=== PATIENT | female | born 1995 | race Caucasian/White ===

== ENCOUNTER 2018-07-26 17:08 | Emergency (ER) | payer OTHER, MEDICAID, SELFPAY ==
[2018-07-26 17:13] VITALS: BP 122/82; PULSE 80; RESP 20; TEMP 36.8; O2SAT 97
--- NOTE | 2018-07-26 17:16 | DI.RAD.S_ITS ---
PROCEDURE: XR CHEST 2V INDICATIONS: productive cough/soa TECHNIQUE: 2 views of the chest were acquired. COMPARISON: None. FINDINGS: Surgical changes and devices: None. Lungs and pleura: No pleural effusions or pneumothorax. Lungs are clear. Mediastinum: Mediastinal contours are normal. Heart size is normal. Bones and chest wall: No suspicious bony abnormalities. Soft tissues appear unremarkable. IMPRESSION: No acute cardiopulmonary findings. Dictated by: Daly Diamond M.D. on 07/26/2018 at 17:39 Approved by: Daly Diamond M.D. on 07/26/2018 at 17:39
[2018-07-26 17:39] LABS: Influenza A and B by PCR Rapid Negative (Negative)
--- NOTE | 2018-07-26 19:33 | PC.NURSE ---
Pt swabbed for FLU test per protocol. provider aware.
--- NOTE | 2018-07-26 20:22 | ED.URI ---
HPI - URI/Sore Throat <THAIS Chester - Last Filed: 07/26/18 22:14> General Chief Complaint: Upper Respiratory Symptoms Stated Complaint: DIFFICULTY BREATHING, COUGH Time Seen by Provider: 07/26/18 19:30 Source: patient Mode of arrival: ambulatory Limitations: no limitations History of Present Illness HPI Narrative: 22-year-old female with history of asthma and is a nonsmoker here for complaint of having a cough nasal congestion and generalized malaise over the past 4-5 days. She has had nasal congestion. She is tolerating p.o. fluids. She denies having a fever. She states she has had productive cough over the same timeframe. She has been using her albuterol inhaler approximately about once daily. She denies any other concerns or complaints this timeframe. She is ambulatory into the emergency room. She is able speak full sentences. Related Data Previous Rx's Medication Instructions Recorded drospirenone-ethinyl estradiol 1 tab PO Q DAY #1 pac 09/14/17 [Ocella] Allergies Allergy/AdvReac Type Severity Reaction Status Date / Time amoxicillin [AMOXICILLIN] Allergy Unknown diarrhea Unverified 10/26/17 12:40 Review of Systems <THAIS Chester - Last Filed: 07/26/18 22:14> Constitutional Denies chills, Denies fever(s), Denies lethargy, Reports malaise and Denies weakness Eyes Denies change in vision, Denies eye discharge, Denies irritation and Denies loss of vision ENT Ears, Nose, Mouth, and Throat: Reports nasal congestion and Denies throat swelling Cardiovascular Denies chest pain, Denies irregular heart rhythm, Denies lightheadedness, Denies palpitations and Denies orthopnea Respiratory Reports cough and Denies wheezing Gastrointestinal Gastrointestinal: Denies abdominal pain, Denies change in bowel habits, Denies diarrhea, Denies nausea and Denies vomiting Genitourinary Denies hematuria, Denies flank pain, Denies urinary incontinence and Denies urinary urgency Musculoskeletal Denies back pain, Denies muscle weakness, Denies numbness and Denies tingling Integumentary/Breasts Denies pruritus, Denies erythema, Denies rash and Denies wounds Neurologic Denies confusion, Denies loss of vision, Denies numbness, Denies tingling and Denies weakness Psychiatric Denies anxiety, Denies confusion, Denies depression, Denies homicidal ideation and Denies suicidal ideation Endocrine Denies palpitations Hematologic/Lymphatic Denies easy bruising Allergic/Immunologic Denies urticaria, Denies throat swelling and Denies wheezing Exam <THAIS Chester - Last Filed: 07/26/18 22:14> Initial Vital Signs Initial Vital Signs: Vital Signs Temperature 98.2 F 07/26/18 17:13 Pulse Rate 80 07/26/18 17:13 Respiratory Rate 20 07/26/18 17:13 Blood Pressure 122/82 07/26/18 17:13 Pulse Oximetry 97 07/26/18 17:13 Const General: cooperative and well developed Nutritional Appearance: well nourished Orientation: alert, awake, oriented x3 and not confused HENGA Mouth: oral mucosae normal, oropharynx normal and moist mucous membranes Eyes Conjunctivae: conjunctivae normal Sclera: sclerae normal Pupils: PERRL EOM: EOM intact bilaterally Resp Effort & Inspection: normal respiratory effort, able to speak in complete sentences, no respiratory distress and no use of accessory muscles Auscultation: clear to auscultation bilaterally, no rales, no rhonchi and no wheezes Cardio Rate: regular rate Rhythm: regular rhythm Heart Sounds: no click, no gallops, no murmurs and no rubs Pulses: normal peripheral pulses Skin General: no rashes or lesions noted, No jaundice and No petechiae Neuro General: alert, oriented x3, gait normal and no focal motor deficits Speech: speech normal <Nell Pierce MD - Last Filed: 07/26/18 23:16> Initial Vital Signs Initial Vital Signs: Vital Signs Temperature 98.2 F 07/26/18 17:13 Pulse Rate 80 07/26/18 17:13 Respiratory Rate 20 07/26/18 17:13 Blood Pressure 122/82 07/26/18 17:13 Pulse Oximetry 97 07/26/18 17:13 Course <THAIS Chester - Last Filed: 07/26/18 22:14> Orders Ordered: ED Orders 07/26/18 17:16 Chest [XR chest 2V] Stat 07/26/18 17:17 Influenza A and B by PCR Rapid Stat Vital Signs - 8 hr 07/26/18 17:13 07/26/18 20:49 Temperature 98.2 F Pulse Rate 80 68 Respiratory Rate 20 15 Blood Pressure 122/82 Blood Pressure [Right Arm] 121/70 Pulse Oximetry 97 98 <Nell Pierce MD - Last Filed: 07/26/18 23:16> Orders Ordered: ED Orders 07/26/18 17:16 Chest [XR chest 2V] Stat 07/26/18 17:17 Influenza A and B by PCR Rapid Stat Vital Signs - 8 hr 07/26/18 17:13 07/26/18 20:49 Temperature 98.2 F Pulse Rate 80 68 Respiratory Rate 20 15 Blood Pressure 122/82 Blood Pressure [Right Arm] 121/70 Pulse Oximetry 97 98 MDM - URI/Sore Throat <THAIS Chester - Last Filed: 07/26/18 22:14> Lab Data Lab Results 07/26/18 Range/Units 17:17 Influenza A & B (PCR) Negative (Negative) Imaging Data Chest x-ray: Radiologist's impression: [address] [address] XRay Report Signed Patient: Lea Galarza MR#: [id number] : 1995 Acct:[id number] Age/Sex: 22 / F Date of Service: 07/26/18 Loc: ED Accession Number: [id number] Procedure: XR chest 2V Ordering Provider: Caty Angulo D.O. PROCEDURE: XR CHEST 2V INDICATIONS: productive cough/soa TECHNIQUE: 2 views of the chest were acquired. COMPARISON: None. FINDINGS: Surgical changes and devices: None. Lungs and pleura: No pleural effusions or pneumothorax. Lungs are clear. Mediastinum: Mediastinal contours are normal. Heart size is normal. Bones and chest wall: No suspicious bony abnormalities. Soft tissues appear unremarkable. IMPRESSION: No acute cardiopulmonary findings. Dictated by: Daly Diamond M.D. on 07/26/2018 at 17:39 Approved by: Daly Diamond M.D. on 07/26/2018 at 17:39 [facility] Narrative Medical decision making narrative: Chest x-ray was obtained was negative for any acute findings. Influenza swab was obtained and was negative. Signs and symptoms presents as a viral upper respiratory infection. Patient was in no acute distress. Vital signs were normal. Lung sounds were clear. Plenty of fluids and rest. [id number] Tylenol or Motrin as needed for any discomfort. Saline irrigation and hot showers to help with nasal congestion. For any worsening symptoms return to the emergency room. <Nell Pierce MD - Last Filed: 07/26/18 23:16> Lab Data Lab Results 07/26/18 Range/Units 17:17 Influenza A & B (PCR) Negative (Negative) Discharge Plan Departure Patient Disposition: Home Clinical Impression: Upper respiratory infection Discharge Date/Time: 07/26/18 20:55 Interventions: ED Discharge Assessment Last Done: 07/26/18 20:54 Instructions: DI for Viral Upper Respiratory Infection -- Adult Activity Restrictions/Additional Instructions: Chest x-ray was obtained was negative for any acute findings. Influenza swab was obtained and was negative. Signs and symptoms presents as a viral upper respiratory infection. Plenty of fluids and rest. [id number] Tylenol or Motrin as needed for any discomfort. Saline irrigation and hot showers to help with nasal congestion. For any worsening symptoms return to the emergency room. Prescriptions: No Action drospirenone-ethinyl estradiol [Ocella] 0.03 MG/3 MG tablet 1 tab PO Q DAY Qty: 1 RF: 11 Referrals: Sumaya Witt MD [Primary Care Provider] -
--- NOTE | 2018-07-26 20:33 | ED_ITS ---
HPI - URI/Sore Throat <THAIS Chester - Last Filed: 07/26/18 22:14> General Chief Complaint: Upper Respiratory Symptoms Stated Complaint: DIFFICULTY BREATHING, COUGH Time Seen by Provider: 07/26/18 19:30 Source: patient Mode of arrival: ambulatory Limitations: no limitations History of Present Illness HPI Narrative: 22-year-old female with history of asthma and is a nonsmoker here for complaint of having a cough nasal congestion and generalized malaise over the past 4-5 days. She has had nasal congestion. She is tolerating p.o. fluids. She denies having a fever. She states she has had productive cough over the same timeframe. She has been using her albuterol inhaler approximately about once daily. She denies any other concerns or complaints this timeframe. She is ambulatory into the emergency room. She is able speak full sentences. Related Data Previous Rx's Medication Instructions Recorded drospirenone-ethinyl estradiol 1 tab PO Q DAY #1 pac 09/14/17 [Ocella] Allergies Allergy/AdvReac Type Severity Reaction Status Date / Time amoxicillin [AMOXICILLIN] Allergy Unknown diarrhea Unverified 10/26/17 12:40 Review of Systems <THAIS Chester - Last Filed: 07/26/18 22:14> Constitutional Denies chills, Denies fever(s), Denies lethargy, Reports malaise and Denies weakness Eyes Denies change in vision, Denies eye discharge, Denies irritation and Denies loss of vision ENT Ears, Nose, Mouth, and Throat: Reports nasal congestion and Denies throat swelling Cardiovascular Denies chest pain, Denies irregular heart rhythm, Denies lightheadedness, Denies palpitations and Denies orthopnea Respiratory Reports cough and Denies wheezing Gastrointestinal Gastrointestinal: Denies abdominal pain, Denies change in bowel habits, Denies diarrhea, Denies nausea and Denies vomiting Genitourinary Denies hematuria, Denies flank pain, Denies urinary incontinence and Denies urinary urgency Musculoskeletal Denies back pain, Denies muscle weakness, Denies numbness and Denies tingling Integumentary/Breasts Denies pruritus, Denies erythema, Denies rash and Denies wounds Neurologic Denies confusion, Denies loss of vision, Denies numbness, Denies tingling and Denies weakness Psychiatric Denies anxiety, Denies confusion, Denies depression, Denies homicidal ideation and Denies suicidal ideation Endocrine Denies palpitations Hematologic/Lymphatic Denies easy bruising Allergic/Immunologic Denies urticaria, Denies throat swelling and Denies wheezing Exam <THAIS Chester - Last Filed: 07/26/18 22:14> Initial Vital Signs Initial Vital Signs: Vital Signs Temperature 98.2 F 07/26/18 17:13 Pulse Rate 80 07/26/18 17:13 Respiratory Rate 20 07/26/18 17:13 Blood Pressure 122/82 07/26/18 17:13 Pulse Oximetry 97 07/26/18 17:13 Const General: cooperative and well developed Nutritional Appearance: well nourished Orientation: alert, awake, oriented x3 and not confused HENGA Mouth: oral mucosae normal, oropharynx normal and moist mucous membranes Eyes Conjunctivae: conjunctivae normal Sclera: sclerae normal Pupils: PERRL EOM: EOM intact bilaterally Resp Effort & Inspection: normal respiratory effort, able to speak in complete sentences, no respiratory distress and no use of accessory muscles Auscultation: clear to auscultation bilaterally, no rales, no rhonchi and no wheezes Cardio Rate: regular rate Rhythm: regular rhythm Heart Sounds: no click, no gallops, no murmurs and no rubs Pulses: normal peripheral pulses Skin General: no rashes or lesions noted, No jaundice and No petechiae Neuro General: alert, oriented x3, gait normal and no focal motor deficits Speech: speech normal <Nell Pierce MD - Last Filed: 07/26/18 23:16> Initial Vital Signs Initial Vital Signs: Vital Signs Temperature 98.2 F 07/26/18 17:13 Pulse Rate 80 07/26/18 17:13 Respiratory Rate 20 07/26/18 17:13 Blood Pressure 122/82 07/26/18 17:13 Pulse Oximetry 97 07/26/18 17:13 Course <THAIS Chester - Last Filed: 07/26/18 22:14> Orders Ordered: ED Orders 07/26/18 17:16 Chest [XR chest 2V] Stat 07/26/18 17:17 Influenza A and B by PCR Rapid Stat Vital Signs - 8 hr 07/26/18 17:13 07/26/18 20:49 Temperature 98.2 F Pulse Rate 80 68 Respiratory Rate 20 15 Blood Pressure 122/82 Blood Pressure [Right Arm] 121/70 Pulse Oximetry 97 98 <Nell Pierce MD - Last Filed: 07/26/18 23:16> Orders Ordered: ED Orders 07/26/18 17:16 Chest [XR chest 2V] Stat 07/26/18 17:17 Influenza A and B by PCR Rapid Stat Vital Signs - 8 hr 07/26/18 17:13 07/26/18 20:49 Temperature 98.2 F Pulse Rate 80 68 Respiratory Rate 20 15 Blood Pressure 122/82 Blood Pressure [Right Arm] 121/70 Pulse Oximetry 97 98 MDM - URI/Sore Throat <THAIS Chester - Last Filed: 07/26/18 22:14> Lab Data Lab Results 07/26/18 Range/Units 17:17 Influenza A & B (PCR) Negative (Negative) Imaging Data Chest x-ray: Radiologist's impression: [address] [address] XRay Report Signed Patient: Lea Galarza MR#: [id number] : 1995 Acct:[id number] Age/Sex: 22 / F Date of Service: 07/26/18 Loc: ED Accession Number: [id number] Procedure: XR chest 2V Ordering Provider: Caty Angulo D.O. PROCEDURE: XR CHEST 2V INDICATIONS: productive cough/soa TECHNIQUE: 2 views of the chest were acquired. COMPARISON: None. FINDINGS: Surgical changes and devices: None. Lungs and pleura: No pleural effusions or pneumothorax. Lungs are clear. Mediastinum: Mediastinal contours are normal. Heart size is normal. Bones and chest wall: No suspicious bony abnormalities. Soft tissues appear unremarkable. IMPRESSION: No acute cardiopulmonary findings. Dictated by: Daly Diamond M.D. on 07/26/2018 at 17:39 Approved by: Daly Diamond M.D. on 07/26/2018 at 17:39 [facility] Narrative Medical decision making narrative: Chest x-ray was obtained was negative for any acute findings. Influenza swab was obtained and was negative. Signs and symptoms presents as a viral upper respiratory infection. Patient was in no acute distress. Vital signs were normal. Lung sounds were clear. Plenty of fluids and rest. [id number]-[id number]-[id number] Tylenol or Motrin as needed for any discomfort. Saline irrigation and hot showers to help with nasal congestion. For any worsening symptoms return to the emergency room. <Nell Pierce MD - Last Filed: 07/26/18 23:16> Lab Data Lab Results 07/26/18 Range/Units 17:17 Influenza A & B (PCR) Negative (Negative) Discharge Plan Departure Patient Disposition: Home Clinical Impression: Upper respiratory infection Discharge Date/Time: 07/26/18 20:55 Interventions: ED Discharge Assessment Last Done: 07/26/18 20:54 Instructions: DI for Viral Upper Respiratory Infection -- Adult Activity Restrictions/Additional Instructions: Chest x-ray was obtained was negative for any acute findings. Influenza swab was obtained and was negative. Signs and symptoms presents as a viral upper respiratory infection. Plenty of fluids and rest. [id number] Tylenol or Motrin as needed for any discomfort. Saline irrigation and hot showers to help with nasal congestion. For any worsening symptoms return to the emergency room. Prescriptions: No Action drospirenone-ethinyl estradiol [Ocella] 0.03 MG/3 MG tablet 1 tab PO Q DAY Qty: 1 RF: 11 Referrals: Sumaya Witt MD [Primary Care Provider] -
[2018-07-26 20:49] VITALS: BP 121/70; PULSE 68; RESP 15; O2SAT 98
== END 2018-07-26 20:55 | disposition home or self-care (01) ==
PROVIDERS: Emergency Medicine; Emergency Provider Nurse Practitioner Family; PCP Obstetrics & Gynecology
DX: J06.9 Acute upper respiratory infection, unspecified (principal)
CPT/HCPCS: 71046; 87400; 99282; 99283

== ENCOUNTER 2019-08-15 14:03 | Emergency (ER) | payer OTHER, MEDICAID, SELFPAY ==
--- NOTE | 2019-08-15 14:50 | PC.NURSE ---
pt stopped me in triage. said she wanted to see if she can get insurance and went back to the registration desk.
--- NOTE | 2019-08-15 21:25 | ED.ABDPAIN ---
HPI - Abdominal Pain General Chief Complaint: Abdominal Pain Stated Complaint: persistant stomach pain 9 days History of Present Illness HPI narrative: The patient was not interviewed or evaluated or examined by myself. She left without being seen. Related Data Previous Rx's Medication Instructions Recorded drospirenone-ethinyl estradiol 1 tab PO Q DAY #1 pac 09/14/17 [Ocella] Allergies Allergy/AdvReac Type Severity Reaction Status Date / Time amoxicillin [AMOXICILLIN] Allergy Unknown diarrhea Unverified 10/26/17 12:40 MDM - Abdominal Pain MDM Narrative Medical decision making narrative: Patient left without being seen. She was not interviewed and examined or evaluated. Discharge Plan Departure Patient Disposition: Left Without Being Seen Clinical Impression: Patient left without being seen Discharge Date/Time: 08/15/19 16:36
== END 2019-08-15 16:36 | disposition left against medical advice (07) ==
PROVIDERS: Emergency Provider Emergency Medicine; PCP Obstetrics & Gynecology

== ENCOUNTER → 2020-03-19 16:08 | Outpatient (CLI) | payer OTHER, MEDICAID, SELFPAY | PROVIDERS: Visit Provider Physician Assistant | DX: R30.0 Dysuria (principal) | CPT/HCPCS: 87077; 87086; 87147; 87186 ==

== ENCOUNTER → 2020-06-03 10:52 | Outpatient (CLI) | payer OTHER, MEDICAID, SELFPAY ==
[2020-06-03 12:49] LABS: Hematocrit 44.7 % (36-46); Hemoglobin 14.8 g/dL (12.0-16.0); Mean Corpuscular HGB Conc 33.2 % (30-36); Mean Corpuscular Hemoglobin 29.3 PG (26-34); Mean Corpuscular Volume 88.1 fL (80-100); Platelet Count 307 X10^3/uL (150-400); Red Blood Cell Count 5.07 X10^6/uL (4.0-5.2); Red Cell Distribution Width 12.5 % (11.6-14.8); White Blood Cell Count 6.8 X10^3/uL (4.5-11.0)
[2020-06-03 12:57] LABS: Add Manual Diff / Slide Review YES
[2020-06-03 13:06] LABS: Alanine Aminotransferase 20 IU/L (<35); Albumin 4.6 g/dL (3.5-5.0); Albumin Globulin Ratio 1.6 (1.0-2.8); Alkaline Phosphatase 54 U/L (38-126); Aspartate Aminotransferase 26 IU/L (14-36); BUN Creatinine Ratio 25.7 (6-22); Bilirubin Total 1.1 mg/dL (0.2-1.3); Blood Urea Nitrogen 18 mg/dL (7-17); Calcium 9.4 mg/dL (8.4-10.2); Carbon Dioxide 28 mmol/L (22-32); Chloride 104 mmol/L (98-107); Estimated Glomerular Filt Rate > 60.0 mL/min (>60); Globulin 2.9 g/dL (1.7-4.1); Glucose 85 mg/dL (70-100); HEMOLYSIS < 15 (0-50); Neutrophils Absolute Manual 2992 /uL (3000-5900); Potassium 4.3 mmol/L (3.4-5.1); Sodium 138 mmol/L (137-145); Total Cells Counted 100; Total Protein 7.5 g/dL (6.3-8.2)
[2020-06-03 13:08] LABS: RBC Morphology Normal Morphology
== END ==
PROVIDERS: PCP Registered Nurse; Referring Provider Registered Nurse; Visit Provider Registered Nurse
DX: Z30.40 Encounter for surveillance of contraceptives, unspecified (principal)
CPT/HCPCS: 36415; 80053; 85025

== ENCOUNTER → 2021-05-23 10:16 | Outpatient (CLI) | payer OTHER, MEDICAID, SELFPAY ==
[2021-05-23 11:02] LABS: COVID19 -Nasal RAPID Negative (Negative)
== END ==
PROVIDERS: PCP Registered Nurse; Visit Provider Physician Assistant
DX: Z20.822 Contact with and (suspected) exposure to COVID-19 (principal)
CPT/HCPCS: 87635

== ENCOUNTER → 2021-05-23 11:17 | Outpatient (CLI) | payer OTHER, MEDICAID, SELFPAY ==
[2021-05-23 12:30] LABS: Add Manual Diff / Slide Review NO; Basophils Absolute Auto 0 /uL (0-100); Basophils Percent Auto 0.2 % (0-2); Eosinophils Absolute Auto 200 /uL (0-450); Eosinophils Percent Auto 1.2 % (2-4); Hematocrit 37.9 % (36-46); Hemoglobin 12.8 g/dL (12.0-16.0); Lymphocytes Absolute Auto 1100 /uL (1100-4500); Lymphocytes Percent Auto 8.8 % (25-40); Mean Corpuscular HGB Conc 33.7 % (30-36); Mean Corpuscular Hemoglobin 29.4 PG (26-34); Mean Corpuscular Volume 87.3 fL (80-100); Monocytes Absolute Auto 1200 /uL (0-900); Monocytes Percent Auto 9.5 % (3-14); Neutrophils Absolute Auto 10100 /uL (1500-7000); Neutrophils Percent Auto 80.3 % (50-75); Platelet Count 225 X10^3/uL (150-400); Red Blood Cell Count 4.35 X10^6/uL (4.0-5.2); Red Cell Distribution Width 12.9 % (11.6-14.8); White Blood Cell Count 12.6 X10^3/uL (4.5-11.0)
[2021-05-23 12:55] LABS: Alanine Aminotransferase 16 IU/L (<35); Albumin 4.3 g/dL (3.5-5.0); Albumin Globulin Ratio 1.5 (1.0-2.8); Alkaline Phosphatase 63 U/L (38-126); Aspartate Aminotransferase 21 IU/L (14-36); BUN Creatinine Ratio 23.2 (6-22); Bilirubin Total 0.9 mg/dL (0.2-1.3); Blood Urea Nitrogen 13 mg/dL (7-17); Calcium 9.2 mg/dL (8.4-10.2); Carbon Dioxide 26 mmol/L (22-32); Chloride 102 mmol/L (98-107); Estimated Glomerular Filt Rate > 60.0 mL/min (>60); Globulin 2.9 g/dL (1.7-4.1); Glucose 91 mg/dL (70-100); HEMOLYSIS < 15 (0-50); Lipase 31 U/L (23-300); Potassium 4.1 mmol/L (3.4-5.1); Sodium 138 mmol/L (137-145); Total Protein 7.2 g/dL (6.3-8.2)
[2021-05-23 13:05] LABS: C-Reactive Protein Quant 15.1 mg/dL (<1.0)
[2021-05-23 13:37] LABS: Erythrocyte Sedimentation Rate 17 MM/HR (0-20)
== END ==
PROVIDERS: PCP Registered Nurse; Referring Provider Physician Assistant; Visit Provider Physician Assistant
DX: K58.9 Irritable bowel syndrome, unspecified (principal); K92.1 Melena; Z20.822 Contact with and (suspected) exposure to COVID-19
CPT/HCPCS: 36415; 80053; 83690; 85025; 85651; 86140; 87635

== ENCOUNTER 2021-05-24 10:59 | Emergency (ER) | payer OTHER, MEDICAID, SELFPAY ==
[2021-05-24 11:56] VITALS: BP 134/70; PULSE 109; RESP 18; TEMP 38.2; O2SAT 97; BMI 29.3
[2021-05-24 13:01] LABS: Adenovirus Not Detected (Not Detect); B. parapertussis Not Detected (Not Detecte); Bordetella pertussis Not Detected (Not Detecte); Chlamydophila pneumoniae Not Detected (Not Detect); Coronavirus 229E Not Detected (Not Detect); Coronavirus HKU1 Not Detected (Not Detect); Coronavirus NL 63 Not Detected (Not Detect); Coronavirus OC43 Not Detected (Not Detect); Human Metapneumovirus Not Detected (Not Detect); Human Rhinovirus/Enterovirus Detected (Not Detect); Influenza A Not Detected (Not Detect); Influenza B Not Detected (Not Detect); Mycoplasma pneumoniae Not Detected (Not Detect); Parainfluenza Virus 1 Not Detected (Not Detect); Parainfluenza Virus 2 Not Detected (Not Detect); Parainfluenza Virus 3 Not Detected (Not Detect); Parainfluenza Virus 4 Not Detected (Not Detect); Respiratory Syncytial Virus Not Detected (Not Detect); SARS- CoV-2 Not Detected (Not Detecte)
--- NOTE | 2021-05-24 13:28 | DI.US.S_ITS ---
PROCEDURE: US ABDOMEN LIMITED INDICATIONS: RUQ PAIN TECHNIQUE: Real-time focused scanning was performed of the right upper quadrant, with image documentation. COMPARISON: None. FINDINGS: The liver is normal in size and demonstrates no focal hepatic lesions. No gallstones, gallbladder wall thickening, or pericholecystic fluid. No intra or extrahepatic biliary ductal dilatation. The visualized common bile duct measures up to 4 mm. The pancreas is not well visualized but appears grossly unremarkable. IMPRESSION: 1. No evidence of cholelithiasis or cholecystitis. 2. No biliary ductal dilatation. Dictated by: Kenan Monroe M.D. on 05/24/2021 at 14:31 Approved by: Kenan Monroe M.D. on 05/24/2021 at 14:32
[2021-05-24 13:29] LABS: RBC Urine 1-5/HPF (0-5/HPF); Squamous Epithelial Cell Urine 1-5 /HPF (0-5/HPF); WBC Urine 10-30/HPF (0-5/HPF)
--- NOTE | 2021-05-24 13:29 | ED_ITS ---
HPI - Abdominal Pain General Chief Complaint: Fever Stated Complaint: body/head aches, no appetite, bloated, dark urine Time Seen by Provider: 05/24/21 13:22 Source: patient Mode of arrival: Ambulatory Limitations: no limitations History of Present Illness HPI narrative: 25-year-old female history of asthma presenting with 5 days of body aches abdominal bloating. She is trying to stay hydrated every time she drinks she does however more more bloated. She denies any nausea or vomiting. She she has loss of appetite. No cough nasal congestion or shortness of breath. She denies any chest pain. She noted that her urine was a little bit dark well. She is currently febrile. Related Data Home Medications Medication Instructions Recorded Confirmed copper 380 square mm intrauterine INTRAUTERINE 06/03/20 06/03/20 device (ParaGard T 380A) Previous Rx's Medication Instructions Recorded albuterol sulfate 90 mcg/actuation 2 puff INHALATION Q4-6H PRN #18 g 12/26/20 aerosol inhaler budesonide-formoterol HFA 160 2 puff INHALATION BID #10.2 g 12/26/20 mcg-4.5 mcg/actuation aerosol inhaler (Symbicort) Allergies Allergy/AdvReac Type Severity Reaction Status Date / Time amoxicillin [AMOXICILLIN] Allergy Unknown diarrhea Verified 06/03/20 10:10 Review of Systems Review of Systems Narrative: GENERAL: Denies chills, fatigue, malaise, fever, sweats, travel HEENT: Denies sinus pain, ear pain, sore throat, difficulty swallowing, neck pain RESPIRATORY: Denies dyspnea, cough, wheezing, hemoptysis, sputum. CARDIOVASCULAR: Denies chest pain, palpitations, orthopnea, edema GASTROINTESTINAL: See HPI : Denies dysuria, frequency, incontinence, hematuria, urinary retention, flank pain. MUSCULOSKELETAL: Denies weakness, joint pain, or bony pain SKIN: No rash, no erythema, no pruritus NEUROLOGIC: Denies weakness, dizziness, headache, numbness, change in speech, confusion PSYCHIATRIC: No concerning psychosocial issues. 12 point review of systems is negative except for those stated above and HPI Patient History Medical History (Updated 05/24/21 @ 13:28 by Laxmi Velarde DO) Bloody stools UTI (urinary tract infection) Social History Smoking Status: Never smoker Smoking Status: Never smoker alcohol intake frequency: other Substance Use Type: marijuana Exam Initial Vital Signs Initial Vital Signs: Vital Signs Temperature 100.8 F H 05/24/21 11:56 Pulse Rate 109 H 05/24/21 11:56 Respiratory Rate 18 05/24/21 11:56 Blood Pressure 134/70 05/24/21 11:56 Pulse Oximetry 97 05/24/21 11:56 GENERAL: Alert well-appearing 25-year-old female and in no acute distress. HEENT: Head atraumatic,EOMI, pupils reactive, face symmetric, moist mucous membranes CARDIOVASCULAR: Regular rate and rhythm without murmurs, rubs or gallops. RESPIRATORY: Breath sounds equal bilaterally, no wheezes rales or rhonchi. ABDOMEN: Soft, mild right upper quadrant no guarding no rebound no other pain normal bowel sounds : No CVA tenderness EXTREMITIES: Normal range of motion, no clubbing or edema. Neurovascularly intact NEUROLOGICAL: Alert and oriented x4.Normal gait and speech. SKIN: Warm, dry, no laceration, no petechiae, no rashes or lesions. Course Orders Ordered: ED Orders 05/24/21 12:05 Urine Culture Stat Urine Microscopic Stat 05/24/21 12:06 Respiratory Panel (Film Array) Stat 05/24/21 13:28 US abdomen limited Stat 05/24/21 14:02 Complete Blood Count AUTO DIFF Stat Comprehensive Metabolic Panel Stat Lipase Stat Discontinued Medications Sodium Chloride (Normal Saline 0.9%) 1,000 mls @ 1,000 mls/hr IV CONT TAJ Last Admin: 05/24/21 14:03 Dose: 1,000 mls/hr Documented by: CARMELA Ketorolac Tromethamine (Ketorolac 30 Mg/Ml Vial) 30 mg IV NOW ONE Stop: 05/24/21 13:29 Last Admin: 05/24/21 14:03 Dose: 30 mg Documented by: CARMELA Vital Signs Vital signs: Vital Signs - 8 hr 05/24/21 11:56 05/24/21 13:46 05/24/21 14:00 Temperature 100.8 F H Pulse Rate 109 H 98 H 103 H Respiratory Rate 18 Blood Pressure 134/70 131/70 Pulse Oximetry 97 100 100 05/24/21 14:01 05/24/21 14:30 05/24/21 15:00 Temperature Pulse Rate 96 H 104 H 113 H Respiratory Rate Blood Pressure 118/57 L 125/62 139/63 Pulse Oximetry 100 100 97 MDM - Abdominal Pain Lab Data Result diagrams: 05/24/21 14:02 05/24/21 14:02 Labs: Lab Results 05/24/21 05/24/21 05/24/21 Range/Units 12:05 12:06 14:02 WBC 11.8 H (4.5-11.0) X10^3/uL RBC 4.27 (4.0-5.2) X10^6/uL Hgb 12.5 (12.0-16.0) g/dL Hct 37.1 (36-46) % MCV 86.9 (80-100) fL MCH 29.2 (26-34) PG MCHC 33.6 (30-36) % RDW 12.8 (11.6-14.8) % Plt Count 225 (150-400) X10^3/uL Neut % (Auto) 80.2 H (50-75) % Lymph % (Auto) 8.8 L (25-40) % [place] % (Auto) 10.6 (3-14) % Eos % (Auto) 0.2 L (2-4) % Baso % (Auto) 0.2 (0-2) % Neut # (Auto) 9500 H (6976-2756) /uL Lymph # (Auto) 1000 L (0359-9208) /uL [place] # (Auto) 1200 H (0-900) /uL Eos # (Auto) 0 (0-450) /uL Baso # (Auto) 0 (0-100) /uL Sodium (137-145) mmol/L Potassium (3.4-5.1) mmol/L Chloride (98-107) mmol/L Carbon Dioxide (22-32) mmol/L BUN (7-17) mg/dL Creatinine (0.52-1.04) mg/dL Estimated GFR (>60) mL/min BUN/Creatinine Ratio (6-22) Glucose (70-100) mg/dL Calcium (8.4-10.2) mg/dL Total Bilirubin (0.2-1.3) mg/dL AST (14-36) IU/L ALT (<35) IU/L Alkaline Phosphatase (38-126) U/L Total Protein (6.3-8.2) g/dL Albumin (3.5-5.0) g/dL Globulin (1.7-4.1) g/dL Albumin/Globulin Ratio (1.0-2.8) Lipase (23-300) U/L Urine RBC 1-5/hpf (0-5/HPF) Urine WBC 10-30/hpf H (0-5/HPF) Ur Squamous Epith Cells 1-5 /hpf (0-5/HPF) Urine Bacteria Many (>30) H (None) Ur Culture Indicated? Specimen cultured Chlamy pneumoniae PCR Not detected (Not Detect) Adenovirus (PCR) Not detected (Not Detect) B. pertussis DNA (PCR) Not detected (Not Detecte) B.parapertussis DNA PCR Not detected (Not Detecte) Coronavirus OC43 (PCR) Not detected (Not Detect) Coronavirus HKU1 (PCR) Not detected (Not Detect) Coronavirus 229E (PCR) Not detected (Not Detect) SARS-CoV-2 (PCR) Not detected (Not Detecte) Coronavirus NL63 (PCR) Not detected (Not Detect) Human Metapneumovir PCR Not detected (Not Detect) Influenza Type A (PCR) Not detected (Not Detect) Influenza Type B (PCR) Not detected (Not Detect) M. pneumoniae (PCR) Not detected (Not Detect) Parainfluenza 1 (PCR) Not detected (Not Detect) Parainfluenza 2 (PCR) Not detected (Not Detect) Parainfluenza 3 (PCR) Not detected (Not Detect) Parainfluenza 4 (PCR) Not detected (Not Detect) RSV (PCR) Not detected (Not Detect) Entero/Rhino (PCR) Detected H (Not Detect) 05/24/21 Range/Units 14:02 WBC (4.5-11.0) X10^3/uL RBC (4.0-5.2) X10^6/uL Hgb (12.0-16.0) g/dL Hct (36-46) % MCV (80-100) fL MCH (26-34) PG MCHC (30-36) % RDW (11.6-14.8) % Plt Count (150-400) X10^3/uL Neut % (Auto) (50-75) % Lymph % (Auto) (25-40) % [place] % (Auto) (3-14) % Eos % (Auto) (2-4) % Baso % (Auto) (0-2) % Neut # (Auto) (6841-0921) /uL Lymph # (Auto) (8569-6584) /uL [place] # (Auto) (0-900) /uL Eos # (Auto) (0-450) /uL Baso # (Auto) (0-100) /uL Sodium 135 L (137-145) mmol/L Potassium 4.2 (3.4-5.1) mmol/L Chloride 99 (98-107) mmol/L Carbon Dioxide 28 (22-32) mmol/L BUN 9 (7-17) mg/dL Creatinine 0.64 (0.52-1.04) mg/dL Estimated GFR > 60.0 (>60) mL/min BUN/Creatinine Ratio 14.1 (6-22) Glucose 102 H (70-100) mg/dL Calcium 9.0 (8.4-10.2) mg/dL Total Bilirubin 0.9 (0.2-1.3) mg/dL AST 22 (14-36) IU/L ALT 18 (<35) IU/L Alkaline Phosphatase 72 (38-126) U/L Total Protein 7.8 (6.3-8.2) g/dL Albumin 4.4 (3.5-5.0) g/dL Globulin 3.4 (1.7-4.1) g/dL Albumin/Globulin Ratio 1.3 (1.0-2.8) Lipase 17 L (23-300) U/L Urine RBC (0-5/HPF) Urine WBC (0-5/HPF) Ur Squamous Epith Cells (0-5/HPF) Urine Bacteria (None) Ur Culture Indicated? Chlamy pneumoniae PCR (Not Detect) Adenovirus (PCR) (Not Detect) B. pertussis DNA (PCR) (Not Detecte) B.parapertussis DNA PCR (Not Detecte) Coronavirus OC43 (PCR) (Not Detect) Coronavirus HKU1 (PCR) (Not Detect) Coronavirus 229E (PCR) (Not Detect) SARS-CoV-2 (PCR) (Not Detecte) Coronavirus NL63 (PCR) (Not Detect) Human Metapneumovir PCR (Not Detect) Influenza Type A (PCR) (Not Detect) Influenza Type B (PCR) (Not Detect) M. pneumoniae (PCR) (Not Detect) Parainfluenza 1 (PCR) (Not Detect) Parainfluenza 2 (PCR) (Not Detect) Parainfluenza 3 (PCR) (Not Detect) Parainfluenza 4 (PCR) (Not Detect) RSV (PCR) (Not Detect) Entero/Rhino (PCR) (Not Detect) Point of care testing: Point of Care Testing Test Results Negative Urine Dip Bedside Urine Glucose Negative Bedside Urine Bilirubin - Negative Bedside Urine Ketone - Negative Urine Specific [place] 1.010 Bedside Urine Occult Blood +/- Bedside Urine pH 8.0 Bedside Urine Protein + 30 Bedside Urine Urobilinogen 2+ 4mg Bedside Urine Nitrite - Negative Bedside Urine Leukocytes +/- 15 Esterase Imaging Data US - abdomen: Radiologist's Impression: PROCEDURE: US ABDOMEN LIMITED ? INDICATIONS:? RUQ PAIN ? TECHNIQUE:? Real-time focused scanning was performed of the right upper quadrant, with image documentation.? ? COMPARISON:? None. ? FINDINGS:? ? The liver is normal in size and demonstrates no focal hepatic lesions. ? No gallstones, gallbladder wall thickening, or pericholecystic fluid. ? No intra or extrahepatic biliary ductal dilatation.? The visualized common bile duct measures up to 4 mm. ? The pancreas is not well visualized but appears grossly unremarkable.? ? IMPRESSION:? ? 1. No evidence of cholelithiasis or cholecystitis. ? 2. No biliary ductal dilatation.? ? ? Dictated by: Kenan Monroe M.D. on 05/24/2021 at 14:31 ? ? [facility] Narrative Medical decision making narrative: The patient is positive for rhino virus but not having upper respiratory like symptoms. She is having some mild abdominal discomfort urine is positive for urobilinogen. With mild right upper quadrant pain this finding in the urine blood work is done. Blood work is overall reassuring ultrasound is also negative. Patient is not having UTI symptoms. At this time viral syndrome on supportive care only. Discharge Plan Departure Patient Disposition: Home Clinical Impression: Upper respiratory infection Activity Restrictions/Additional Instructions: *You have been diagnosed with upper respiratory infection *What to do: You are positive for rhino virus. It is typically an upper respiratory infection. Blood work and abdominal workup is negative. Recommend increasing fluids. Body aches are likely from fever so please treat fever Tylenol or Motrin as directed *Continue to take medications as directed Motrin 800 mg every 8 hours if needed for [id number]-bc-vmbtiytg pain Tylenol 650 mg every 4-6 hours if needed for nlcc-da-pzdbbxoo pain *Follow up with your primary care provider in 2-3 days *Return to ER if you should have pain fever shortness of breath or any new, worsening or concerning symptoms Prescriptions: No Action budesonide-formoterol [Symbicort] 160-4.5 mcg/actuation HFA aerosol inhaler 2 puff inhalation BID Qty: 10.2 RF: 3 albuterol sulfate 90 mcg/actuation HFA aerosol inhaler 2 puff inhalation Q4-6H PRN (Reason: shortness of breath or wheezing) Qty: 18 RF: 3 ParaGard T 380A 380 square mm intrauterine device intrauterine RF: 0 Referrals: Calin Johnson ARNP [Primary Care Provider] -
[2021-05-24 13:30] LABS: Bacteria Urine Many (>30); Culture Indicated Urine Specimen Cultured
[2021-05-24 13:46] VITALS: BP 131/70; PULSE 98; O2SAT 100
[2021-05-24 14:00] VITALS: PULSE 103; O2SAT 100
[2021-05-24 14:01] VITALS: BP 118/57; PULSE 96; O2SAT 100
[2021-05-24] MEDS: SODIUM CHLORIDE 0.9% 1,000 ML 1000 ML IV (14:03)
[2021-05-24] MEDS: KETOROLAC 30 MG/ML VIAL IV (14:03)
[2021-05-24 14:10] LABS: Add Manual Diff / Slide Review NO; Basophils Absolute Auto 0 /uL (0-100); Basophils Percent Auto 0.2 % (0-2); Eosinophils Absolute Auto 0 /uL (0-450); Eosinophils Percent Auto 0.2 % (2-4); Hematocrit 37.1 % (36-46); Hemoglobin 12.5 g/dL (12.0-16.0); Lymphocytes Absolute Auto 1000 /uL (1100-4500); Lymphocytes Percent Auto 8.8 % (25-40); Mean Corpuscular HGB Conc 33.6 % (30-36); Mean Corpuscular Hemoglobin 29.2 PG (26-34); Mean Corpuscular Volume 86.9 fL (80-100); Monocytes Absolute Auto 1200 /uL (0-900); Monocytes Percent Auto 10.6 % (3-14); Neutrophils Absolute Auto 9500 /uL (1500-7000); Neutrophils Percent Auto 80.2 % (50-75); Platelet Count 225 X10^3/uL (150-400); Red Blood Cell Count 4.27 X10^6/uL (4.0-5.2); Red Cell Distribution Width 12.8 % (11.6-14.8); White Blood Cell Count 11.8 X10^3/uL (4.5-11.0)
[2021-05-24 14:19] LABS: Alanine Aminotransferase 18 IU/L (<35); Albumin 4.4 g/dL (3.5-5.0); Albumin Globulin Ratio 1.3 (1.0-2.8); Alkaline Phosphatase 72 U/L (38-126); Aspartate Aminotransferase 22 IU/L (14-36); BUN Creatinine Ratio 14.1 (6-22); Bilirubin Total 0.9 mg/dL (0.2-1.3); Blood Urea Nitrogen 9 mg/dL (7-17); Carbon Dioxide 28 mmol/L (22-32); Chloride 99 mmol/L (98-107); Estimated Glomerular Filt Rate > 60.0 mL/min (>60); Globulin 3.4 g/dL (1.7-4.1); Glucose 102 mg/dL (70-100); HEMOLYSIS < 15 (0-50); Lipase 17 U/L (23-300); Potassium 4.2 mmol/L (3.4-5.1); Sodium 135 mmol/L (137-145); Total Protein 7.8 g/dL (6.3-8.2)
[2021-05-24 14:30] VITALS: BP 125/62; PULSE 104; O2SAT 100
[2021-05-24 15:00] VITALS: BP 139/63; PULSE 113; O2SAT 97
== END 2021-05-24 15:12 | disposition home or self-care (01) ==
PROVIDERS: Emergency Provider Emergency Medicine; PCP Registered Nurse
DX: J06.9 Acute upper respiratory infection, unspecified (principal); B34.8 Other viral infections of unspecified site; R10.11 Right upper quadrant pain; Z20.822 Contact with and (suspected) exposure to COVID-19
CPT/HCPCS: 36415; 76705; 80053; 81003; 81015; 81025; 83690; 85025; 87077; 87086; 87186; 87633; 96361; 96374; 99284; J1885

== ENCOUNTER → 2021-08-25 11:35 | Outpatient (CLI) | payer OTHER, MEDICAID, SELFPAY | PROVIDERS: PCP Registered Nurse; Visit Provider Registered Nurse | DX: N39.0 Urinary tract infection, site not specified (principal); R35.0 Frequency of micturition | CPT/HCPCS: 81002; 87077; 87086; 87186 ==

== ENCOUNTER → 2021-08-31 13:19 | Outpatient (CLI) | payer OTHER, MEDICAID, SELFPAY | PROVIDERS: PCP Registered Nurse; Visit Provider Student in an Organized Health Care Education/Training Program | DX: N34.3 Urethral syndrome, unspecified (principal) | CPT/HCPCS: 87086 ==

== ENCOUNTER 2021-08-31 14:25 | Emergency (ER) | payer OTHER, MEDICAID, SELFPAY ==
--- NOTE | 2021-08-31 14:47 | DI.US.S_ITS ---
PROCEDURE: US ABDOMEN LIMITED INDICATIONS: RUQ PAIN TECHNIQUE: Real-time focused scanning was performed of the abdomen, with image documentation. COMPARISON: [facility], , US ABDOMEN LIMITED, 05/24/2021, 14:09. FINDINGS: The liver demonstrates no focal hepatic lesions. Gallbladder is normal in appearance without gallstones, wall thickening, or pericholecystic fluid. No intra or extrahepatic biliary ductal dilatation. The visualized common bile duct measures 2-3 mm. The visualized pancreas appears unremarkable sonographically. IMPRESSION: 1. No evidence of cholelithiasis or cholecystitis. Dictated by: Kenan Monroe M.D. on 08/31/2021 at 15:55 Approved by: Kenan Monroe M.D. on 08/31/2021 at 16:04
[2021-08-31 14:52] VITALS: BP 140/85; PULSE 87; RESP 14; TEMP 36.3; O2SAT 97; BMI 29.4
[2021-08-31 21:04] LABS: Add Manual Diff / Slide Review NO; Basophils Absolute Auto 100 /uL (0-100); Basophils Percent Auto 0.8 % (0-2); Eosinophils Absolute Auto 1500 /uL (0-450); Hematocrit 39.5 % (36-46); Hemoglobin 13.2 g/dL (12.0-16.0); Lymphocytes Absolute Auto 2500 /uL (1100-4500); Lymphocytes Percent Auto 27.1 % (25-40); Mean Corpuscular HGB Conc 33.3 % (30-36); Mean Corpuscular Hemoglobin 28.8 PG (26-34); Mean Corpuscular Volume 86.2 fL (80-100); Monocytes Absolute Auto 700 /uL (0-900); Monocytes Percent Auto 7.3 % (3-14); Neutrophils Absolute Auto 4600 /uL (1500-7000); Neutrophils Percent Auto 48.8 % (50-75); Platelet Count 448 X10^3/uL (150-400); Red Blood Cell Count 4.58 X10^6/uL (4.0-5.2); Red Cell Distribution Width 13.1 % (11.6-14.8); White Blood Cell Count 9.3 X10^3/uL (4.5-11.0)
[2021-08-31 21:11] LABS: Alanine Aminotransferase 18 IU/L (<35); Albumin 4.4 g/dL (3.5-5.0); Albumin Globulin Ratio 1.6 (1.0-2.8); Alkaline Phosphatase 67 U/L (38-126); Aspartate Aminotransferase 21 IU/L (14-36); Bilirubin Total 0.4 mg/dL (0.2-1.3); Blood Urea Nitrogen 16 mg/dL (7-17); Calcium 9.1 mg/dL (8.4-10.2); Carbon Dioxide 33 mmol/L (22-32); Chloride 100 mmol/L (98-107); Estimated Glomerular Filt Rate > 60.0 mL/min (>60); Globulin 2.8 g/dL (1.7-4.1); Glucose 93 mg/dL (70-100); HEMOLYSIS < 15 (0-50); Lipase 56 U/L (23-300); Potassium 3.7 mmol/L (3.4-5.1); Sodium 138 mmol/L (137-145); Total Protein 7.2 g/dL (6.3-8.2)
--- NOTE | 2021-08-31 21:46 | ED.ABDPAIN ---
HPI - Abdominal Pain General Chief Complaint: Abdominal Pain Stated Complaint: Possible Galstones. sent by [facility] Time Seen by Provider: 08/31/21 21:46 Source: patient Mode of arrival: Ambulatory Limitations: no limitations History of Present Illness HPI narrative: No real labs 25-year-old female with 5 days of right upper quadrant pain that is also in her flank. She has had nausea and vomiting last time was 2 days ago. She has had diarrhea but usually once a day, it has been greenish or normal coloration. No black or blood. She denies pain in her lower abdomen. Patient denies any chest pain or shortness of breath. She has not had any fevers or chills. She came in today because she has had persistent symptoms. She did have a kidney infection was on antibiotics and completed these and had improvement. She denies any dysuria urgency or frequency. She is currently on her menses. She is otherwise healthy she uses budesonide daily but no other medications. No surgeries. Denies allergies. She uses marijuana which she smokes. No alcohol or other illicit. Related Data Previous Rx's Medication Instructions Recorded albuterol sulfate 90 mcg/actuation 2 puff INHALATION Q4-6H PRN #18 g 09/01/21 aerosol inhaler budesonide-formoterol HFA 160 See Rx Instructions .ROUTE 09/01/21 mcg-4.5 mcg/actuation aerosol .COMPLEX #10.2 g inhaler tramadol 50 mg tablet 50 mg PO Q6H PRN #10 tab 09/01/21 Allergies Allergy/AdvReac Type Severity Reaction Status Date / Time amoxicillin [AMOXICILLIN] Allergy Unknown diarrhea Verified 08/31/21 14:57 Review of Systems Review of Systems ROS Unobtainable: All systems reviewed & are unremarkable except as noted in HPI and below Patient History Medical History Bloody stools Encounter for IUD removal Urinary frequency UTI (urinary tract infection) Social History Smoking Status: Never smoker Smoking Status: Never smoker alcohol intake frequency: other Substance Use Type: marijuana Exam Narrative Exam Narrative: GENERAL: Alert and oriented x three, female mild distress. HEENT: Head normocephalic, atraumatic, EOMI, pupils reactive, face symmetric, moist mucous membranes NECK: Supple, full range of motion CARDIOVASCULAR: Regular rate and rhythm without murmurs, rubs or gallops. RESPIRATORY: Breath sounds equal bilaterally, no wheezes rales or rhonchi. ABDOMEN: Soft, nontender. Normoactive bowel sounds all 4 quadrants. No guarding or rebound, rigidity, no mass : No CVA tenderness EXTREMITIES: Normal range of motion, no clubbing or edema. Neurovascularly intact NEUROLOGICAL: Cranial nerves II through XII grossly intact. Moving all extremities SKIN: Warm, dry, no petechiae, no rashes or lesions. Initial Vital Signs Initial Vital Signs: Vital Signs Temperature 97.4 F L 08/31/21 14:52 Pulse Rate 87 08/31/21 14:52 Respiratory Rate 14 08/31/21 14:52 Blood Pressure 140/85 08/31/21 14:52 Pulse Oximetry 97 08/31/21 14:52 Course Orders Ordered: Discontinued Medications Ketorolac Tromethamine (Ketorolac 30 Mg/Ml Vial) 30 mg IV NOW ONE Stop: 08/31/21 22:50 Last Admin: 08/31/21 22:59 Dose: 30 mg Documented by: LOUISA Reevaluation(s) Reevaluation #1: Patient feels improved after pain medications. Time: 00:07 Vital Signs Vital signs: Vital Signs - 8 hr 08/31/21 14:52 Temperature 97.4 F L Pulse Rate 87 Respiratory Rate 14 Blood Pressure 140/85 Pulse Oximetry 97 MDM - Abdominal Pain Lab Data Result diagrams: 08/31/21 20:50 08/31/21 20:50 Labs: Lab Results 08/31/21 08/31/21 Range/Units 20:50 20:50 WBC 9.3 (4.5-11.0) X10^3/uL RBC 4.58 (4.0-5.2) X10^6/uL Hgb 13.2 (12.0-16.0) g/dL Hct 39.5 (36-46) % MCV 86.2 (80-100) fL MCH 28.8 (26-34) PG MCHC 33.3 (30-36) % RDW 13.1 (11.6-14.8) % Plt Count 448 H (150-400) X10^3/uL Neut % (Auto) 48.8 L (50-75) % Lymph % (Auto) 27.1 (25-40) % Kay % (Auto) 7.3 (3-14) % Eos % (Auto) 16.0 H (2-4) % Baso % (Auto) 0.8 (0-2) % Neut # (Auto) 4600 (7123-1688) /uL Lymph # (Auto) 2500 (9868-9365) /uL Kay # (Auto) 700 (0-900) /uL Eos # (Auto) 1500 H (0-450) /uL Baso # (Auto) 100 (0-100) /uL Sodium 138 (137-145) mmol/L Potassium 3.7 (3.4-5.1) mmol/L Chloride 100 (98-107) mmol/L Carbon Dioxide 33 H (22-32) mmol/L BUN 16 (7-17) mg/dL Creatinine 0.84 (0.52-1.04) mg/dL Estimated GFR > 60.0 (>60) mL/min BUN/Creatinine Ratio 19.0 (6-22) Glucose 93 (70-100) mg/dL Calcium 9.1 (8.4-10.2) mg/dL Total Bilirubin 0.4 (0.2-1.3) mg/dL AST 21 (14-36) IU/L ALT 18 (<35) IU/L Alkaline Phosphatase 67 (38-126) U/L Total Protein 7.2 (6.3-8.2) g/dL Albumin 4.4 (3.5-5.0) g/dL Globulin 2.8 (1.7-4.1) g/dL Albumin/Globulin Ratio 1.6 (1.0-2.8) Lipase 56 (23-300) U/L Imaging Data US - abdomen: Radiologist's Impression: Launch?[address] [address] Ultrasound Report Signed Patient: Lea Galarza MR#: [id number] : 1995 Acct:[id number] Age/Sex: 25 / F Date of Service: 08/31/21 Loc: ED Accession Number: [id number] ?? Procedure: US abdomen limited Ordering Provider: Laxmi Velarde D.O. PROCEDURE: US ABDOMEN LIMITED ? INDICATIONS:? RUQ PAIN ? TECHNIQUE:? Real-time focused scanning was performed of the abdomen, with image documentation.? ? COMPARISON:? [facility], ABDOMEN LIMITED, 05/24/2021, 14:09. ? FINDINGS:? ? The liver demonstrates no focal hepatic lesions. ? Gallbladder is normal in appearance without gallstones, wall thickening, or pericholecystic fluid. ? No intra or extrahepatic biliary ductal dilatation.? The visualized common bile duct measures 2-3 mm. ? The visualized pancreas appears unremarkable sonographically. ? IMPRESSION:? ? 1. No evidence of cholelithiasis or cholecystitis. ? ? Dictated by: Kenan Monroe M.D. on 08/31/2021 at 15:55 ? ? Approved by: Kenan Monroe M.D. on 08/31/2021 at 16:04?? CT scan - abdomen/pelvis: Radiologist's Impression: [place] [address] CT Scan Report Signed Patient: Lea Galarza MR#: [id number] : 1995 Acct:[id number] Age/Sex: 25 / F Date of Service: 08/31/21 Loc: ED Accession Number: [id number] ?? Procedure: CT kidney ureter bladder (KUB) Ordering Provider: Caty Angulo D.O. PROCEDURE:? CT KIDNEY URETER BLADDER (KUB) ? INDICATIONS:? right abdominal pain, flank pain hematuria x 5 days ? TECHNIQUE:? Axial sections were acquired from the lung bases to the pubic symphysis.? Coronal and sagittal reformats were performed.? For radiation dose reduction, the following was used: ?automated exposure control, adjustment of mA and/or kV according to patient size.? ? COMPARISON:? [facility], ABDOMEN LIMITED, 08/31/2021, 14:56. ? FINDINGS:? Image quality:? Excellent.? ? Lung bases:? Unremarkable.? ? Heart:? No significant findings. ? URINARY: Right Kidney: ? No stones or hydronephrosis.? Right Ureter:? No hydroureter.? ? Left Kidney: ? No stones or hydronephrosis. Left Ureter:? No hydroureter.? ? Bladder:? Normal wall thickness. No stones. ? ? ? ABDOMEN: Liver:? Unremarkable.? ? Gallbladder:? Unremarkable.? ? Biliary ducts:? Unremarkable.? ? Pancreas:? Unremarkable.? ? Spleen:? Unremarkable.? ? Adrenal Glands:? Unremarkable.? ? ? Stomach and Bowel:? Stomach, small bowel loops, and colon are unremarkable.? Normal appendix.? Moderate amount of stool in colon. Peritoneum:? No abnormal intraperitoneal fluid.? No free air.? ? Ventral Wall: ? Tiny fat containing umbilical hernia.? Abdominal Nodes:? No enlarged retroperitoneal or mesenteric lymph nodes.? Vessels:? Aorta and inferior vena cava are normal in size.? ? PELVIS: Pelvic Organs:? Uterus and ovaries are grossly normal.? No pathological free-fluid in pelvis.? ? Pelvic Nodes: Unremarkable. Miscellaneous: No inguinal hernias are seen. ? ? ? Bones:? Unremarkable. ? IMPRESSION:? ? 1. No renal stone or hydronephrosis. 2.? No acute abnormalities in abdomen or pelvis. ? ? ? Dictated by: Kiley Prater M.D. on 08/31/2021 at 23:47 ? ? Approved by: Kiley Prater M.D. on 08/31/2021 at 23:51?? MDM Narrative Medical decision making narrative: This is a 21 old female with right upper quadrant and flank discomfort that is been present for 5 days with some nausea and vomiting that stopped about 2 days ago. Some diarrhea like stools once daily. Patient is on her. She had hematuria but no other major changes on her lab, test was negative and urine. Ultrasound the right upper quadrant does not show any acute changes. CT abdomen pelvis was obtained evaluate for kidney stone she does have hematuria although this is likely from her menses. This is negative. No other acute findings patient's abdominal exam is reassuring. Plan to have patient follow-up with primary care she did have improvement with Toradol. Discussed potential differential plan for follow-up if she has persistent symptoms. Discharge Plan Departure Patient Disposition: Home Clinical Impression: Abdominal pain Instructions: DI for Abdominal Pain-Adult Activity Restrictions/Additional Instructions: Follow-up with your physician for recheck. If you have persistent symptoms you may wish to discuss with your physician about having a HIDA scan or even EGD to evaluate for ulcers or gallbladder dysfunction although your ultrasound, CT and lab work today are rate of shortening. Your labs and imaging are reassuring. You may take Tylenol up to a 1000 mg every 8 hours and or ibuprofen up to 800 mg every 8 hours. If in adequate you may take tramadol 1-2 tablets every 6 hours as needed. Prescription sent to [facility] Please return for fevers, worsening abdominal pain, persistent vomiting, lightheadedness or passing or other new or concerning symptoms. Prescriptions: New tramadol 50 mg tablet 50 mg PO Q6H PRN (Reason: pain) Qty: 10 0RF No Action albuterol sulfate 90 mcg/actuation HFA aerosol inhaler 2 puff inhalation Q4-6H PRN (Reason: shortness of breath or wheezing) Qty: 18 3RF budesonide-formoterol 160-4.5 mcg/actuation HFA aerosol inhaler See Rx Instructions .ROUTE .COMPLEX Qty: 10.2 6RF Dose Instruction: inhale 2 puffs by mouth twice a day for asthma Rx Instructions: inhale 2 puffs by mouth twice a day for asthma Referrals: Calin Johnson ARNP [Primary Care Provider] - Stand Alone Forms: Work Release Note
--- NOTE | 2021-08-31 22:49 | DI.CT.S_ITS ---
PROCEDURE: CT KIDNEY URETER BLADDER (KUB) INDICATIONS: right abdominal pain, flank pain hematuria x 5 days TECHNIQUE: Axial sections were acquired from the lung bases to the pubic symphysis. Coronal and sagittal reformats were performed. For radiation dose reduction, the following was used: automated exposure control, adjustment of mA and/or kV according to patient size. COMPARISON: [facility], , ABDOMEN LIMITED, 08/31/2021, 14:56. FINDINGS: Image quality: Excellent. Lung bases: Unremarkable. Heart: No significant findings. URINARY: Right Kidney: No stones or hydronephrosis. Right Ureter: No hydroureter. Left Kidney: No stones or hydronephrosis. Left Ureter: No hydroureter. Bladder: Normal wall thickness. No stones. ABDOMEN: Liver: Unremarkable. Gallbladder: Unremarkable. Biliary ducts: Unremarkable. Pancreas: Unremarkable. Spleen: Unremarkable. Adrenal Glands: Unremarkable. Stomach and Bowel: Stomach, small bowel loops, and colon are unremarkable. Normal appendix. Moderate amount of stool in colon. Peritoneum: No abnormal intraperitoneal fluid. No free air. Ventral Wall: Tiny fat containing umbilical hernia. Abdominal Nodes: No enlarged retroperitoneal or mesenteric lymph nodes. Vessels: Aorta and inferior vena cava are normal in size. PELVIS: Pelvic Organs: Uterus and ovaries are grossly normal. No pathological free-fluid in pelvis. Pelvic Nodes: Unremarkable. Miscellaneous: No inguinal hernias are seen. Bones: Unremarkable. IMPRESSION: 1. No renal stone or hydronephrosis. 2. No acute abnormalities in abdomen or pelvis. Dictated by: Kiley Prater M.D. on 08/31/2021 at 23:47 Approved by: Kiley Prater M.D. on 08/31/2021 at 23:51
[2021-08-31] MEDS: KETOROLAC 30 MG/ML VIAL IV (22:59)
[2021-09-01 00:19] VITALS: BP 118/68; PULSE 70; RESP 16; O2SAT 97
== END 2021-09-01 00:27 | disposition home or self-care (01) ==
PROVIDERS: Emergency Medicine; Emergency Provider Emergency Medicine; PCP Registered Nurse
DX: R10.11 Right upper quadrant pain (principal); N34.3 Urethral syndrome, unspecified
CPT/HCPCS: 36415; 74176; 76705; 80053; 81002; 81025; 83690; 85025; 87077; 87086; 96374; 99284; J1885

== ENCOUNTER 2021-10-04 04:05 | Emergency (ER) | payer OTHER, MEDICAID, SELFPAY ==
[2021-10-04 04:15] VITALS: BP 129/68; PULSE 102; RESP 18; TEMP 37.7; O2SAT 100; BMI 28.3
--- NOTE | 2021-10-04 04:32 | ED_ITS ---
HPI - <Laxmi Velarde DO - Last Filed: 10/05/21 02:44> General Chief complaint: Abdominal Pain Stated complaint: 5 WEEKS PREG./FEVER/SPOTTING/ABD. PAIN Time Seen by Provider: 10/04/21 04:23 Source: patient Mode of arrival: Ambulatory History of Present Illness HPI Narrative: Patient is a 25-year-old female , AB1 presenting today about 5 weeks and 3 days . She says that she has been doing well up until about 4:30 this afternoon when she her feeling nauseous since said that she had a fever of 100.9 at work. She has been having some vaginal spotting all day today mostly dark and only when she wipes. Although she says the bleeding has gotten little bit heavier throat out today. Not more than 1 super pad an hour. She took Tylenol rest there around is 1145 1000 mg. She denies any painful or frequent urination. She denies any abdominal pain. Related Data Previous Rx's Medication Instructions Recorded albuterol sulfate 90 mcg/actuation 2 puff INHALATION Q4-6H PRN #18 g 09/01/21 aerosol inhaler budesonide-formoterol HFA 160 See Rx Instructions .ROUTE 09/01/21 mcg-4.5 mcg/actuation aerosol .COMPLEX #10.2 g inhaler tramadol 50 mg tablet 50 mg PO Q6H PRN #10 tab 09/01/21 nitrofurantoin 100 mg PO Q12H 7 Days #14 cap 10/04/21 monohydrate/macrocrystals 100 mg capsule (Macrobid) Allergies Allergy/AdvReac Type Severity Reaction Status Date / Time amoxicillin [AMOXICILLIN] Allergy Unknown diarrhea Verified 08/31/21 14:57 Review of Systems <Laxmi Velarde DO - Last Filed: 10/05/21 02:44> Review of Systems Narrative: GENERAL: Denies chills, fatigue, malaise, fever, sweats, travel HEENT: Denies sinus pain, ear pain, sore throat, difficulty swallowing, neck pain RESPIRATORY: Denies dyspnea, cough, wheezing, hemoptysis, sputum. CARDIOVASCULAR: Denies chest pain, palpitations, orthopnea, edema GASTROINTESTINAL: Denies nausea, vomiting, abdominal pain, diarrhea, constipation, melena. [employer]ER: See HPI : Denies dysuria, frequency, incontinence, hematuria, urinary retention, flank pain. MUSCULOSKELETAL: Denies weakness, joint pain, or bony pain SKIN: No rash, no erythema, no pruritus NEUROLOGIC: Denies weakness, dizziness, headache, numbness, change in speech, confusion PSYCHIATRIC: No concerning psychosocial issues. 12 point review of systems is negative except for those stated above and HPI Exam <Laxmi Velarde DO - Last Filed: 10/05/21 02:44> Initial Vital Signs Initial Vital Signs: Vital Signs Temperature 99.9 F H 10/04/21 04:15 Pulse Rate 102 H 10/04/21 04:15 Respiratory Rate 18 10/04/21 04:15 Blood Pressure 129/68 10/04/21 04:15 Pulse Oximetry 100 10/04/21 04:15 GENERAL: 25-year-old female who appears uncomfortable acute distress. HEENT: Head atraumatic,EOMI, pupils reactive, face symmetric, [moist] mucous membranes CARDIOVASCULAR: Regular rate and rhythm without murmurs, rubs or gallops. RESPIRATORY: Breath sounds equal bilaterally, no wheezes rales or rhonchi. ABDOMEN: Soft, nontender. Normoactive bowel sounds all 4 quadrants. No guarding or rebound. : No CVA tenderness EXTREMITIES: Normal range of motion, no clubbing or edema. Neurovascularly intact NEUROLOGICAL: Alert and oriented x4.Normal gait and speech. SKIN: Warm, dry, no laceration, no petechiae, no rashes or lesions. <Caty Angulo, DO - Last Filed: 10/08/21 07:57> Initial Vital Signs Initial Vital Signs: Vital Signs Temperature 99.9 F H 10/04/21 04:15 Pulse Rate 102 H 10/04/21 04:15 Respiratory Rate 18 10/04/21 04:15 Blood Pressure 129/68 10/04/21 04:15 Pulse Oximetry 100 10/04/21 04:15 Course <DO Savanna Jimenez Last Filed: 10/05/21 02:44> Orders Ordered: Discontinued Medications Acetaminophen (Acetaminophen 325 Mg Tablet) 650 mg PO NOW ONE Stop: 10/04/21 06:29 Last Admin: 10/04/21 06:31 Dose: 650 mg Documented by: PETRA Sodium Chloride (Normal Saline 0.9%) 1,000 mls @ 1,000 mls/hr IV BOLUS ONE Stop: 10/04/21 05:38 Last Infusion: 10/04/21 09:22 Dose: 0 mls/hr Documented by: Admin: 10/04/21 05:51 Dose: 1,000 mls/hr Documented by: PETRA Ceftriaxone Sodium 1,000 mg/ (Sodium Chloride) 100 mls @ 200 mls/hr IV NOW ONE Stop: 10/04/21 06:34 Last Infusion: 10/04/21 09:22 Dose: 0 mls/hr Documented by: Admin: 10/04/21 06:57 Dose: 200 mls/hr Documented by: PETRA Vital Signs Vital signs: Vital Signs - 8 hr 10/04/21 04:15 10/04/21 06:32 Temperature 99.9 F H 101.7 F H Pulse Rate 102 H Respiratory Rate 18 Blood Pressure 129/68 Pulse Oximetry 100 <Caty Angulo DO - Last Filed: 10/08/21 07:57> Orders Ordered: Discontinued Medications Acetaminophen (Acetaminophen 325 Mg Tablet) 650 mg PO NOW ONE Stop: 10/04/21 06:29 Last Admin: 10/04/21 06:31 Dose: 650 mg Documented by: PETRA Sodium Chloride (Normal Saline 0.9%) 1,000 mls @ 1,000 mls/hr IV BOLUS ONE Stop: 10/04/21 05:38 Last Infusion: 10/04/21 09:22 Dose: 0 mls/hr Documented by: Admin: 10/04/21 05:51 Dose: 1,000 mls/hr Documented by: PETRA Ceftriaxone Sodium 1,000 mg/ (Sodium Chloride) 100 mls @ 200 mls/hr IV NOW ONE Stop: 10/04/21 06:34 Last Infusion: 10/04/21 09:22 Dose: 0 mls/hr Documented by: Admin: 10/04/21 06:57 Dose: 200 mls/hr Documented by: PETRA Vital Signs Vital signs: Vital Signs - 8 hr 10/04/21 04:15 10/04/21 06:32 Temperature 99.9 F H 101.7 F H Pulse Rate 102 H Respiratory Rate 18 Blood Pressure 129/68 Pulse Oximetry 100 MDM - OB/Uterine Contractions <Laxmi Botnick, DO - Last Filed: 10/05/21 02:44> Lab Data Result diagrams: 10/04/21 05:35 10/04/21 05:35 Labs: Lab Results 10/04/21 10/04/21 10/04/21 Range/Units 05:05 05:35 05:35 WBC 10.4 (4.5-11.0) X10^3/uL RBC 4.40 (4.0-5.2) X10^6/uL Hgb 12.7 (12.0-16.0) g/dL Hct 36.7 (36-46) % MCV 83.5 (80-100) fL MCH 28.8 (26-34) PG MCHC 34.5 (30-36) % RDW 13.2 (11.6-14.8) % Plt Count 226 (150-400) X10^3/uL Neut % (Auto) 80.9 H (50-75) % Lymph % (Auto) 10.3 L (25-40) % [place] % (Auto) 7.0 (3-14) % Eos % (Auto) 1.4 L (2-4) % Baso % (Auto) 0.4 (0-2) % Neut # (Auto) 8500 H (9122-7352) /uL Lymph # (Auto) 1100 (3756-0776) /uL [place] # (Auto) 700 (0-900) /uL Eos # (Auto) 100 (0-450) /uL Baso # (Auto) 0 (0-100) /uL Sodium 134 L (137-145) mmol/L Potassium 3.2 L (3.4-5.1) mmol/L Chloride 101 (98-107) mmol/L Carbon Dioxide 26 (22-32) mmol/L BUN 9 (7-17) mg/dL Creatinine 0.67 (0.52-1.04) mg/dL Estimated GFR > 60.0 (>60) mL/min BUN/Creatinine Ratio 13.4 (6-22) Glucose 94 (70-100) mg/dL Lactate (0.7-2.1) mmol/L Calcium 9.2 (8.4-10.2) mg/dL Total Bilirubin 1.7 H (0.2-1.3) mg/dL AST 22 (14-36) IU/L ALT 18 (<35) IU/L Alkaline Phosphatase 52 (38-126) U/L Total Protein 7.8 (6.3-8.2) g/dL Albumin 4.6 (3.5-5.0) g/dL Globulin 3.2 (1.7-4.1) g/dL Albumin/Globulin Ratio 1.4 (1.0-2.8) Procalcitonin (<0.5) ng/mL HCG, Quant mIU/mL Urine Color Yellow Urine Appearance Clear Urine pH 6.5 (4.5-8.0) Ur Specific [place] 1.010 (1.000-1.035) Urine Protein Negative (Negative) Urine Glucose (UA) Negative (Negative) g/dL Urine Ketones 1+ H (NEGATIVE) Urine Occult Blood Negative (Negative) Urine Nitrate Negative (Negative) Urine Bilirubin Negative (NEGATIVE) Urine Urobilinogen 0.2 (0.2) E.U./dL Ur Leukocyte Esterase Negative (NEGATIVE) Urine RBC None seen (0-5/HPF) Urine WBC 0-1/hpf (0-5/HPF) Ur Squamous Epith Cells 0-1 /hpf (0-5/HPF) Urine Bacteria Few (2-10) H (None) Ur Culture Indicated? Cult not indicated SARS-CoV-2 (PCR) (Negative) 10/04/21 10/04/21 10/04/21 Range/Units 05:35 05:35 05:35 WBC (4.5-11.0) X10^3/uL RBC (4.0-5.2) X10^6/uL Hgb (12.0-16.0) g/dL Hct (36-46) % MCV (80-100) fL MCH (26-34) PG MCHC (30-36) % RDW (11.6-14.8) % Plt Count (150-400) X10^3/uL Neut % (Auto) (50-75) % Lymph % (Auto) (25-40) % [place] % (Auto) (3-14) % Eos % (Auto) (2-4) % Baso % (Auto) (0-2) % Neut # (Auto) (0487-5250) /uL Lymph # (Auto) (5345-0125) /uL [place] # (Auto) (0-900) /uL Eos # (Auto) (0-450) /uL Baso # (Auto) (0-100) /uL Sodium (137-145) mmol/L Potassium (3.4-5.1) mmol/L Chloride (98-107) mmol/L Carbon Dioxide (22-32) mmol/L BUN (7-17) mg/dL Creatinine (0.52-1.04) mg/dL Estimated GFR (>60) mL/min BUN/Creatinine Ratio (6-22) Glucose (70-100) mg/dL Lactate 1.0 (0.7-2.1) mmol/L Calcium (8.4-10.2) mg/dL Total Bilirubin (0.2-1.3) mg/dL AST (14-36) IU/L ALT (<35) IU/L Alkaline Phosphatase (38-126) U/L Total Protein (6.3-8.2) g/dL Albumin (3.5-5.0) g/dL Globulin (1.7-4.1) g/dL Albumin/Globulin Ratio (1.0-2.8) Procalcitonin 0.06 (<0.5) ng/mL HCG, Quant 3701.4 mIU/mL Urine Color Urine Appearance Urine pH (4.5-8.0) Ur Specific [place] (1.000-1.035) Urine Protein (Negative) Urine Glucose (UA) (Negative) g/dL Urine Ketones (NEGATIVE) Urine Occult Blood (Negative) Urine Nitrate (Negative) Urine Bilirubin (NEGATIVE) Urine Urobilinogen (0.2) E.U./dL Ur Leukocyte Esterase (NEGATIVE) Urine RBC (0-5/HPF) Urine WBC (0-5/HPF) Ur Squamous Epith Cells (0-5/HPF) Urine Bacteria (None) Ur Culture Indicated? SARS-CoV-2 (PCR) (Negative) 10/04/21 Range/Units 07:22 WBC (4.5-11.0) X10^3/uL RBC (4.0-5.2) X10^6/uL Hgb (12.0-16.0) g/dL Hct (36-46) % MCV (80-100) fL MCH (26-34) PG MCHC (30-36) % RDW (11.6-14.8) % Plt Count (150-400) X10^3/uL Neut % (Auto) (50-75) % Lymph % (Auto) (25-40) % [place] % (Auto) (3-14) % Eos % (Auto) (2-4) % Baso % (Auto) (0-2) % Neut # (Auto) (7814-6084) /uL Lymph # (Auto) (5259-9178) /uL [place] # (Auto) (0-900) /uL Eos # (Auto) (0-450) /uL Baso # (Auto) (0-100) /uL Sodium (137-145) mmol/L Potassium (3.4-5.1) mmol/L Chloride (98-107) mmol/L Carbon Dioxide (22-32) mmol/L BUN (7-17) mg/dL Creatinine (0.52-1.04) mg/dL Estimated GFR (>60) mL/min BUN/Creatinine Ratio (6-22) Glucose (70-100) mg/dL Lactate (0.7-2.1) mmol/L Calcium (8.4-10.2) mg/dL Total Bilirubin (0.2-1.3) mg/dL AST (14-36) IU/L ALT (<35) IU/L Alkaline Phosphatase (38-126) U/L Total Protein (6.3-8.2) g/dL Albumin (3.5-5.0) g/dL Globulin (1.7-4.1) g/dL Albumin/Globulin Ratio (1.0-2.8) Procalcitonin (<0.5) ng/mL HCG, Quant mIU/mL Urine Color Urine Appearance Urine pH (4.5-8.0) Ur Specific [place] (1.000-1.035) Urine Protein (Negative) Urine Glucose (UA) (Negative) g/dL Urine Ketones (NEGATIVE) Urine Occult Blood (Negative) Urine Nitrate (Negative) Urine Bilirubin (NEGATIVE) Urine Urobilinogen (0.2) E.U./dL Ur Leukocyte Esterase (NEGATIVE) Urine RBC (0-5/HPF) Urine WBC (0-5/HPF) Ur Squamous Epith Cells (0-5/HPF) Urine Bacteria (None) Ur Culture Indicated? SARS-CoV-2 (PCR) Negative (Negative) Imaging Data US - OB: Radiologist's Impression: Gestational sac and yolk sac are visualized. pole are not seen. Estimated gestational age based on gestational sac size 5 weeks 2 days. Findings are consistent with early and continued clinical and ultrasound follow-up is suggested MDM Narrative Medical decision making narrative: Patient does developed fever 101.7 in the emergency department. Abdomen is reexamined very minimal tenderness. Urine does not show obvious infection but does have some small amount of bacteria. No leukocytosis. Normal lactic acid. She is given 1 dose of Rocephin in the ED. she overall appears well. She is given IV fluids in the ED as well. Recommend close outpatient follow-up. <Caty Angulo, DO - Last Filed: 10/08/21 07:57> Lab Data Labs: Lab Results 10/04/21 10/04/21 10/04/21 Range/Units 05:05 05:35 05:35 WBC 10.4 (4.5-11.0) X10^3/uL RBC 4.40 (4.0-5.2) X10^6/uL Hgb 12.7 (12.0-16.0) g/dL Hct 36.7 (36-46) % MCV 83.5 (80-100) fL MCH 28.8 (26-34) PG MCHC 34.5 (30-36) % RDW 13.2 (11.6-14.8) % Plt Count 226 (150-400) X10^3/uL Neut % (Auto) 80.9 H (50-75) % Lymph % (Auto) 10.3 L (25-40) % [place] % (Auto) 7.0 (3-14) % Eos % (Auto) 1.4 L (2-4) % Baso % (Auto) 0.4 (0-2) % Neut # (Auto) 8500 H (0586-1919) /uL Lymph # (Auto) 1100 (7855-9557) /uL [place] # (Auto) 700 (0-900) /uL Eos # (Auto) 100 (0-450) /uL Baso # (Auto) 0 (0-100) /uL Sodium 134 L (137-145) mmol/L Potassium 3.2 L (3.4-5.1) mmol/L Chloride 101 (98-107) mmol/L Carbon Dioxide 26 (22-32) mmol/L BUN 9 (7-17) mg/dL Creatinine 0.67 (0.52-1.04) mg/dL Estimated GFR > 60.0 (>60) mL/min BUN/Creatinine Ratio 13.4 (6-22) Glucose 94 (70-100) mg/dL Lactate (0.7-2.1) mmol/L Calcium 9.2 (8.4-10.2) mg/dL Total Bilirubin 1.7 H (0.2-1.3) mg/dL AST 22 (14-36) IU/L ALT 18 (<35) IU/L Alkaline Phosphatase 52 (38-126) U/L Total Protein 7.8 (6.3-8.2) g/dL Albumin 4.6 (3.5-5.0) g/dL Globulin 3.2 (1.7-4.1) g/dL Albumin/Globulin Ratio 1.4 (1.0-2.8) Procalcitonin (<0.5) ng/mL HCG, Quant mIU/mL Urine Color Yellow Urine Appearance Clear Urine pH 6.5 (4.5-8.0) Ur Specific [place] 1.010 (1.000-1.035) Urine Protein Negative (Negative) Urine Glucose (UA) Negative (Negative) g/dL Urine Ketones 1+ H (NEGATIVE) Urine Occult Blood Negative (Negative) Urine Nitrate Negative (Negative) Urine Bilirubin Negative (NEGATIVE) Urine Urobilinogen 0.2 (0.2) E.U./dL Ur Leukocyte Esterase Negative (NEGATIVE) Urine RBC None seen (0-5/HPF) Urine WBC 0-1/hpf (0-5/HPF) Ur Squamous Epith Cells 0-1 /hpf (0-5/HPF) Urine Bacteria Few (2-10) H (None) Ur Culture Indicated? Cult not indicated SARS-CoV-2 (PCR) (Negative) 10/04/21 10/04/21 10/04/21 Range/Units 05:35 05:35 05:35 WBC (4.5-11.0) X10^3/uL RBC (4.0-5.2) X10^6/uL Hgb (12.0-16.0) g/dL Hct (36-46) % MCV (80-100) fL MCH (26-34) PG MCHC (30-36) % RDW (11.6-14.8) % Plt Count (150-400) X10^3/uL Neut % (Auto) (50-75) % Lymph % (Auto) (25-40) % [place] % (Auto) (3-14) % Eos % (Auto) (2-4) % Baso % (Auto) (0-2) % Neut # (Auto) (7479-6636) /uL Lymph # (Auto) (9432-7106) /uL [place] # (Auto) (0-900) /uL Eos # (Auto) (0-450) /uL Baso # (Auto) (0-100) /uL Sodium (137-145) mmol/L Potassium (3.4-5.1) mmol/L Chloride (98-107) mmol/L Carbon Dioxide (22-32) mmol/L BUN (7-17) mg/dL Creatinine (0.52-1.04) mg/dL Estimated GFR (>60) mL/min BUN/Creatinine Ratio (6-22) Glucose (70-100) mg/dL Lactate 1.0 (0.7-2.1) mmol/L Calcium (8.4-10.2) mg/dL Total Bilirubin (0.2-1.3) mg/dL AST (14-36) IU/L ALT (<35) IU/L Alkaline Phosphatase (38-126) U/L Total Protein (6.3-8.2) g/dL Albumin (3.5-5.0) g/dL Globulin (1.7-4.1) g/dL Albumin/Globulin Ratio (1.0-2.8) Procalcitonin 0.06 (<0.5) ng/mL HCG, Quant 3701.4 mIU/mL Urine Color Urine Appearance Urine pH (4.5-8.0) Ur Specific [place] (1.000-1.035) Urine Protein (Negative) Urine Glucose (UA) (Negative) g/dL Urine Ketones (NEGATIVE) Urine Occult Blood (Negative) Urine Nitrate (Negative) Urine Bilirubin (NEGATIVE) Urine Urobilinogen (0.2) E.U./dL Ur Leukocyte Esterase (NEGATIVE) Urine RBC (0-5/HPF) Urine WBC (0-5/HPF) Ur Squamous Epith Cells (0-5/HPF) Urine Bacteria (None) Ur Culture Indicated? SARS-CoV-2 (PCR) (Negative) 10/04/21 Range/Units 07:22 WBC (4.5-11.0) X10^3/uL RBC (4.0-5.2) X10^6/uL Hgb (12.0-16.0) g/dL Hct (36-46) % MCV (80-100) fL MCH (26-34) PG MCHC (30-36) % RDW (11.6-14.8) % Plt Count (150-400) X10^3/uL Neut % (Auto) (50-75) % Lymph % (Auto) (25-40) % [place] % (Auto) (3-14) % Eos % (Auto) (2-4) % Baso % (Auto) (0-2) % Neut # (Auto) (4751-2285) /uL Lymph # (Auto) (2990-3815) /uL [place] # (Auto) (0-900) /uL Eos # (Auto) (0-450) /uL Baso # (Auto) (0-100) /uL Sodium (137-145) mmol/L Potassium (3.4-5.1) mmol/L Chloride (98-107) mmol/L Carbon Dioxide (22-32) mmol/L BUN (7-17) mg/dL Creatinine (0.52-1.04) mg/dL Estimated GFR (>60) mL/min BUN/Creatinine Ratio (6-22) Glucose (70-100) mg/dL Lactate (0.7-2.1) mmol/L Calcium (8.4-10.2) mg/dL Total Bilirubin (0.2-1.3) mg/dL AST (14-36) IU/L ALT (<35) IU/L Alkaline Phosphatase (38-126) U/L Total Protein (6.3-8.2) g/dL Albumin (3.5-5.0) g/dL Globulin (1.7-4.1) g/dL Albumin/Globulin Ratio (1.0-2.8) Procalcitonin (<0.5) ng/mL HCG, Quant mIU/mL Urine Color Urine Appearance Urine pH (4.5-8.0) Ur Specific [place] (1.000-1.035) Urine Protein (Negative) Urine Glucose (UA) (Negative) g/dL Urine Ketones (NEGATIVE) Urine Occult Blood (Negative) Urine Nitrate (Negative) Urine Bilirubin (NEGATIVE) Urine Urobilinogen (0.2) E.U./dL Ur Leukocyte Esterase (NEGATIVE) Urine RBC (0-5/HPF) Urine WBC (0-5/HPF) Ur Squamous Epith Cells (0-5/HPF) Urine Bacteria (None) Ur Culture Indicated? SARS-CoV-2 (PCR) Negative (Negative) Discharge Plan Departure Patient Disposition: Home Clinical Impression: Vaginal bleeding during , Urinary tract infection during Instructions: DI for Vaginal Bleeding During Activity Restrictions/Additional Instructions: HCG 3701.4 *You have been diagnosed with had no bleeding in . If with fever you do have some mild bacteria in your urine possibly bladder infection *What to do: Please have hCG rechecked in 48 hours with her primary care OB or your PCP. Fluid intake as tolerated *Continue to take medications as directed Tylenol 1000 mg every 6 hours if needed for [id number] pain or fever Macrobid 100mg twice a day for 7 days, SENT TO [facility] IN [place] *Follow up with your primary care provider in 2-3 days or call [phone] Please call OB to schedule follow-up appointment *Return to ER if you should have increasing pain fever increased bleeding including more than 1 heavy pad or tampon in 1 and any new, worsening or concerning symptoms Prescriptions: New nitrofurantoin monohyd/m-cryst [Macrobid] 100 mg capsule 100 mg PO Q12H 7 Days Qty: 14 0RF Rx Instructions: must administer with a meal/food No Action albuterol sulfate 90 mcg/actuation HFA aerosol inhaler 2 puff inhalation Q4-6H PRN (Reason: shortness of breath or wheezing) Qty: 18 3RF budesonide-formoterol 160-4.5 mcg/actuation HFA aerosol inhaler See Rx Instructions .ROUTE .COMPLEX Qty: 10.2 6RF Dose Instruction: inhale 2 puffs by mouth twice a day for asthma Rx Instructions: inhale 2 puffs by mouth twice a day for asthma tramadol 50 mg tablet 50 mg PO Q6H PRN (Reason: pain) Qty: 10 0RF Referrals: Calin Johnson ARNP [Primary Care Provider] - <Caty Angulo DO - Last Filed: 10/08/21 07:57> Cosign ED Attending Cosignature Attestation: Patient was not seen or cared for by myself but unable to close chart otherwise.
--- NOTE | 2021-10-04 04:39 | DI.US.S_ITS ---
PROCEDURE: US OB <= 14 WEEKS FETUS INDICATIONS: BLEEDING, PAIN OUTSIDE/PRIOR DATING DATA: Last menstrual period (LMP): 08/27/2021. LMP-based estimated date of delivery (TRUDY): 06/03/2022. First dating scan (date and location): Not applicable. Estimated date of delivery (TRUDY) from first dating scan: Not applicable. TECHNIQUE: Real-time scanning was performed of the fetus and maternal pelvic organs, with image documentation. Endovaginal scanning was also performed to better visualize the fetus and maternal ovaries. COMPARISON: [facility], CT, CT KIDNEY URETER BLADDER (KUB), 08/31/2021, 22:52. FINDINGS: Embryo: There is intrauterine gestational sac seen, with a pole seen at this time. A yolk sac can be seen. The mean gestational sac diameter is 0.6 cm, which corresponds to an ultrasound estimated gestational age 5 weeks 2 days. Maternal organs: Ovaries are within normal limits, with a likely right ovarian corpus luteum measures up 2 cm. IMPRESSION: Intrauterine gestational sac with a yolk sac seen. No pole is seen at this time. Close clinical followup, with serial beta-hCG and serial ultrasound are recommended, if clinically appropriate. Note: No significant discrepancy from the preliminary report. We strive to produce accurate, complete, and clear reports of imaging services. To assist us in improving patient care, this report was composed using standard report templates and voice recognition software. Therefore, it may contain abnormal punctuation, insertions and/or omissions. Occasional wrong-word or sound-alike substitutions may occur. Though we review the report and make efforts to correct it, we do recommend that the report be read carefully in proper context to recognize any text inaccuracies. Dictated by: Philipp Lebron M.D. on 10/04/2021 at 6:55 Approved by: Philipp Lebron M.D. on 10/04/2021 at 6:58
[2021-10-04 05:14] LABS: Appearance Urine UA CLEAR; Bilirubin Urine UA NEGATIVE (NEGATIVE); Color Urine UA YELLOW; Glucose Urine UA NEGATIVE (Negative); Ketones Urine UA 1+ (NEGATIVE); Leukocyte Esterase Urine UA NEGATIVE (NEGATIVE); Nitrite Urine UA NEGATIVE (Negative); Occult Blood Urine UA NEGATIVE (Negative); Protein Urine UA NEGATIVE (Negative); Urobilinogen Urine UA 0.2 E.U./dL (0.2)
[2021-10-04 05:15] LABS: pH Urine UA 6.5 (4.5-8.0)
[2021-10-04 05:16] LABS: Bacteria Urine Few (2-10); Culture Indicated Urine Cult Not Indicated; RBC Urine None Seen (0-5/HPF); Squamous Epithelial Cell Urine 0-1 /HPF (0-5/HPF); WBC Urine 0-1/HPF (0-5/HPF)
[2021-10-04 05:45] LABS: Add Manual Diff / Slide Review NO; Basophils Absolute Auto 0 /uL (0-100); Basophils Percent Auto 0.4 % (0-2); Eosinophils Absolute Auto 100 /uL (0-450); Eosinophils Percent Auto 1.4 % (2-4); Hematocrit 36.7 % (36-46); Hemoglobin 12.7 g/dL (12.0-16.0); Lymphocytes Absolute Auto 1100 /uL (1100-4500); Lymphocytes Percent Auto 10.3 % (25-40); Mean Corpuscular HGB Conc 34.5 % (30-36); Mean Corpuscular Hemoglobin 28.8 PG (26-34); Mean Corpuscular Volume 83.5 fL (80-100); Monocytes Absolute Auto 700 /uL (0-900); Neutrophils Absolute Auto 8500 /uL (1500-7000); Neutrophils Percent Auto 80.9 % (50-75); Platelet Count 226 X10^3/uL (150-400); Red Cell Distribution Width 13.2 % (11.6-14.8); White Blood Cell Count 10.4 X10^3/uL (4.5-11.0)
[2021-10-04] MEDS: SODIUM CHLORIDE 0.9% 1,000 ML 1000 ML IV (05:51)
[2021-10-04 05:57] LABS: Alanine Aminotransferase 18 IU/L (<35); Albumin 4.6 g/dL (3.5-5.0); Albumin Globulin Ratio 1.4 (1.0-2.8); Alkaline Phosphatase 52 U/L (38-126); Aspartate Aminotransferase 22 IU/L (14-36); BUN Creatinine Ratio 13.4 (6-22); Bilirubin Total 1.7 mg/dL (0.2-1.3); Blood Urea Nitrogen 9 mg/dL (7-17); Calcium 9.2 mg/dL (8.4-10.2); Carbon Dioxide 26 mmol/L (22-32); Chloride 101 mmol/L (98-107); Estimated Glomerular Filt Rate > 60.0 mL/min (>60); Globulin 3.2 g/dL (1.7-4.1); Glucose 94 mg/dL (70-100); HEMOLYSIS < 15 (0-50); Potassium 3.2 mmol/L (3.4-5.1); Sodium 134 mmol/L (137-145); Total Protein 7.8 g/dL (6.3-8.2)
[2021-10-04 06:14] LABS: HCG Quantitative /Beta subunit 3701.4 mIU/mL
[2021-10-04] MEDS: ACETAMINOPHEN 325 MG TABLET 650 MG PO (06:31)
[2021-10-04 06:32] VITALS: TEMP 38.7
[2021-10-04] MEDS: cefTRIAXone 1,000 MG in SODIUM CHLORIDE 0.9% 100 ML 200 ML IV (06:57)
[2021-10-04 07:01] LABS: Procalcitonin 0.06 ng/mL (<0.5)
[2021-10-04 07:38] LABS: COVID19 -Nasal RAPID Negative (Negative)
[2021-10-04 09:00] VITALS: BP 130/65; PULSE 102; RESP 16; O2SAT 100
== END 2021-10-04 09:01 | disposition home or self-care (01) ==
PROVIDERS: Emergency Provider Emergency Medicine; PCP Registered Nurse
DX: O20.9 Hemorrhage in early pregnancy, unspecified (principal); O23.41 Unspecified infection of urinary tract in pregnancy, first trimester; N39.0 Urinary tract infection, site not specified; Z3A.01 Less than 8 weeks gestation of pregnancy; Z88.0 Allergy status to penicillin; Z20.822 Contact with and (suspected) exposure to COVID-19
CPT/HCPCS: 36415; 76801; 76817; 80053; 81001; 83605; 84145; 84702; 85025; 87040; 87635; 96361; 96365; 96366; 99284; C9803; J0696

== ENCOUNTER → 2021-10-06 09:08 | Outpatient (CLI) | payer OTHER, MEDICAID, SELFPAY ==
[2021-10-06 10:53] LABS: HCG Quantitative /Beta subunit 6913.5 mIU/mL
== END ==
PROVIDERS: PCP Registered Nurse; Referring Provider Obstetrics & Gynecology; Visit Provider Obstetrics & Gynecology
DX: O46.90 Antepartum hemorrhage, unspecified, unspecified trimester (principal)
CPT/HCPCS: 36415; 84702

== ENCOUNTER → 2021-10-20 15:27 | Outpatient (CLI) | payer OTHER, MEDICAID, SELFPAY | PROVIDERS: PCP Registered Nurse; Visit Provider Obstetrics & Gynecology | DX: N39.0 Urinary tract infection, site not specified (principal) | CPT/HCPCS: 87077; 87086; 87186 ==

== ENCOUNTER → 2021-10-29 08:13 | Outpatient (CLI) | payer OTHER, MEDICAID, SELFPAY ==
[2021-10-29 10:23] LABS: Add Manual Diff / Slide Review NO; Basophils Absolute Auto 0 /uL (0-100); Basophils Percent Auto 0.5 % (0-2); Eosinophils Absolute Auto 300 /uL (0-450); Eosinophils Percent Auto 3.1 % (2-4); Hemoglobin 12.2 g/dL (12.0-16.0); Lymphocytes Absolute Auto 1800 /uL (1100-4500); Lymphocytes Percent Auto 21.8 % (25-40); Mean Corpuscular Hemoglobin 28.6 PG (26-34); Mean Corpuscular Volume 84.1 fL (80-100); Monocytes Absolute Auto 600 /uL (0-900); Monocytes Percent Auto 7.3 % (3-14); Neutrophils Absolute Auto 5500 /uL (1500-7000); Neutrophils Percent Auto 67.3 % (50-75); Platelet Count 248 X10^3/uL (150-400); Red Blood Cell Count 4.28 X10^6/uL (4.0-5.2); Red Cell Distribution Width 13.8 % (11.6-14.8); White Blood Cell Count 8.2 X10^3/uL (4.5-11.0)
[2021-10-29 16:35] LABS: HIV 1 & 2 Ab/Ag 4th Gen Combo NEGATIVE (NEGATIVE); Hep C Virus Ab w/Reflex Quant NEGATIVE s/c (NEGATIVE); Hepatitis B Surface Antigen NEGATIVE s/c (NEGATIVE); Rubella Antibody IgG 25.8 IU/mL (>15)
[2021-10-29 20:12] LABS: Appearance Urine UA Slightly Cloudy; Bilirubin Urine UA NEGATIVE (NEGATIVE); Color Urine UA YELLOW; Glucose Urine UA NEGATIVE (Negative); Ketones Urine UA NEGATIVE (NEGATIVE); Leukocyte Esterase Urine UA 1+ (NEGATIVE); Nitrite Urine UA NEGATIVE (Negative); Occult Blood Urine UA NEGATIVE (Negative); Protein Urine UA NEGATIVE (Negative); Urobilinogen Urine UA 0.2 E.U./dL (0.2)
[2021-10-29 20:21] LABS: Amorphous Sediment Urine 1+; Bacteria Urine Few (2-10); RBC Urine None Seen (0-5/HPF); Squamous Epithelial Cell Urine 1-5 /HPF (0-5/HPF); WBC Urine 10-30/HPF (0-5/HPF)
[2021-10-29 20:22] LABS: Mucus Urine 1+ (Negative)
[2021-10-30 06:38] LABS: RPR Screen Non Reactive (Non Reactive)
[2021-10-30 09:09] LABS: Varicella IgG Antibody <135 index (Immune >165)
== END ==
PROVIDERS: Referring Provider Obstetrics & Gynecology; Visit Provider Obstetrics & Gynecology
DX: Z34.81 Encounter for supervision of other normal pregnancy, first trimester (principal); Z3A.09 9 weeks gestation of pregnancy
CPT/HCPCS: 36415; 80055; 81003; 81015; 86787; 86803; 86850; 86900; 86901; 87077; 87086; 87186; 87389

== ENCOUNTER → 2021-11-12 07:08 | Outpatient (CLI) | payer OTHER, MEDICAID, SELFPAY ==
[2021-11-12 09:13] LABS: Influenza A - CEPHEID Flu A NEGATIVE (NEGATIVE); Influenza B - CEPHEID Flu B NEGATIVE (NEGATIVE)
[2021-11-12 09:17] LABS: COVID-19 CEPHEID PCR (VTM/NP) Negative (Negative)
== END ==
PROVIDERS: Visit Provider Nurse Practitioner Family
DX: N39.0 Urinary tract infection, site not specified (principal); R35.0 Frequency of micturition; R05.9 Cough, unspecified; Z20.822 Contact with and (suspected) exposure to COVID-19
CPT/HCPCS: 0240U; 81002; 87077; 87086; 87186; 87210

== ENCOUNTER → 2021-12-22 15:11 | Outpatient (CLI) | payer OTHER, MEDICAID, SELFPAY ==
[2021-12-23 21:21] LABS: AFP Value 29.9 ng/mL (.); Gest Age on Col Date 16.7 weeks (.); Gestational Age Ultrasound (.); Insulin Dep Diabetes No (.); OSBR Risk 1IN 10000 (.); Results Report (.); Test Results *Screen Negative* (.)
== END ==
PROVIDERS: Referring Provider Obstetrics & Gynecology; Visit Provider Obstetrics & Gynecology
DX: Z34.82 Encounter for supervision of other normal pregnancy, second trimester (principal); Z3A.16 16 weeks gestation of pregnancy
CPT/HCPCS: 36415; 82105

== ENCOUNTER → 2021-12-30 17:00 | Outpatient (CLI) | payer OTHER, MEDICAID, SELFPAY ==
[2021-12-30 18:12] LABS: Appearance Urine UA SL CLOUDY; Bilirubin Urine UA NEGATIVE (NEGATIVE); Color Urine UA YELLOW; Glucose Urine UA NEGATIVE (Negative); Ketones Urine UA 1+ (NEGATIVE); Leukocyte Esterase Urine UA 1+ (NEGATIVE); Nitrite Urine UA NEGATIVE (Negative); Occult Blood Urine UA TRACE-LYSED (Negative); Protein Urine UA 1+ (Negative); Urobilinogen Urine UA 0.2 E.U./dL (0.2)
[2021-12-30 18:26] LABS: pH Urine UA 5.5 (4.5-8.0)
[2021-12-30 18:31] LABS: RBC Urine 0-1/HPF (0-5/HPF)
[2021-12-30 18:32] LABS: Amorphous Sediment Urine 1+; Bacteria Urine Moderate (10-30); Culture Indicated Urine Specimen Cultured; Mucus Urine 1+ (Negative); Squamous Epithelial Cell Urine 1-5 /HPF (0-5/HPF); WBC Urine 30-100/HPF (0-5/HPF)
== END ==
PROVIDERS: Referring Provider Obstetrics & Gynecology; Visit Provider Obstetrics & Gynecology
DX: Z34.90 Encounter for supervision of normal pregnancy, unspecified, unspecified trimester (principal); R30.0 Dysuria
CPT/HCPCS: 81001; 87086; 87147

== ENCOUNTER → 2022-01-21 10:52 | Outpatient (CLI) | payer OTHER, MEDICAID, SELFPAY ==
--- NOTE | 2022-01-21 10:54 | DI.US.S_ITS ---
PROCEDURE: US OB >= 14 WEEKS FETUS INDICATIONS: 20 WEEK ANATOMY SCAN OUTSIDE/PRIOR DATING DATA: Last menstrual period (LMP): August 27, 2021. LMP-based estimated date of delivery (TRUDY): June 03, 2022. First dating scan (date and location): October 04, 2021, [facility]. Estimated date of delivery (TRUDY) from first dating scan: June 04, 2022. TECHNIQUE: Real-time scanning was performed of the fetus, with image documentation and biometric measurements. COMPARISON: None. FINDINGS: General: A single living intrauterine gestation is present. Presentation: Vertex Placenta: Placental position is posterior , without previa. Amniotic fluid index: 16.1 cm, normal range is 5-24 cm. heart rate: 157 beats per minute. Maternal cervical canal: 5.0 cm long. Normal lower limit is 2.5 cm. biometrics: Biparietal diameter: 5.2 cm, 21 weeks, 6 days Head circumference: 18.7 cm, 21 weeks, 0 days Abdominal circumference: 16.5 cm, 21 weeks, 4 days Femur length: 3.5 cm, 21 weeks, 0 days Clinically estimated gestational age: 21 weeks, 0 days Composite gestational age from present scan: 21 weeks, 3 days Estimated weight and percentile: 415 g 62% Anatomic survey: Neuro: Ventricles are non-dilated at less than 10 mm. Cisterna magna is normal at 3-11 mm. Cerebellum is normal in size and morphology. Nuchal skin fold: Normal at less than 6 mm between 14-21 weeks gestational age. Face: Nose and lips, facial profile are normal. Spine: No evidence for spina bifida. Heart: 4-chambered heart is present, with normal ventricular outflow tracts. Diaphragm: Diaphragm is intact. Stomach: Left-sided stomach is present. Kidneys: No hydronephrosis. Normal is less than 5 mm in 2nd trimester, less than 7 mm in 3rd trimester. Cord: 3-vessel cord has orthotopic insertion. Bladder: Normal in size. Extremities: All 4 extremities identified. IMPRESSION: 1. Single live intrauterine gestation with a composite gestational age of 21 weeks, 3 days which is concordant with dates by initial scan. No sonographic anatomic abnormalities. We strive to produce accurate, complete, and clear reports of imaging services. To assist us in improving patient care, this report was composed using standard report templates and voice recognition software. Therefore, it may contain abnormal punctuation, insertions and/or omissions. Occasional wrong-word or sound-alike substitutions may occur. Though we review the report and make efforts to correct it, we do recommend that the report be read carefully in proper context to recognize any text inaccuracies. Dictated by: Daly Diamond M.D. on 01/21/2022 at 14:57 Approved by: Daly Diamond M.D. on 01/21/2022 at 15:04
== END ==
PROVIDERS: Referring Provider Obstetrics & Gynecology; Visit Provider Obstetrics & Gynecology
DX: Z34.82 Encounter for supervision of other normal pregnancy, second trimester (principal); Z3A.21 21 weeks gestation of pregnancy
CPT/HCPCS: 76811

== ENCOUNTER → 2022-02-15 14:43 | Outpatient (CLI) | payer OTHER, MEDICAID, SELFPAY ==
[2022-02-15 15:53] LABS: COVID19 -Nasal RAPID Negative (Negative)
== END ==
PROVIDERS: Visit Provider Nurse Practitioner Family
DX: Z20.822 Contact with and (suspected) exposure to COVID-19 (principal)
CPT/HCPCS: 87635

== ENCOUNTER → 2022-03-11 11:05 | Outpatient (CLI) | payer OTHER, MEDICAID, SELFPAY ==
[2022-03-11 13:01] LABS: Hematocrit 35.1 % (36-46)
[2022-03-11 13:26] LABS: GTT (PREG) 1 Hour PP 50gm Dose 100 mg/dL (76-139)
== END ==
PROVIDERS: Referring Provider Obstetrics & Gynecology; Visit Provider Obstetrics & Gynecology
DX: Z34.92 Encounter for supervision of normal pregnancy, unspecified, second trimester (principal)
CPT/HCPCS: 36415; 82950; 85014; 85018

== ENCOUNTER 2022-04-21 17:58 | Observation (INO) | payer OTHER, MEDICAID, SELFPAY ==
--- NOTE | 2022-04-21 19:30 | DI.US.S_ITS ---
PROCEDURE: US OB LIMITED INDICATIONS: BLUNT TRAUMA 1 DAY AGO OUTSIDE/PRIOR DATING DATA: Last menstrual period (LMP): 08/27/21 LMP-based estimated date of delivery (TRUDY): 06/03/22. First dating scan (date and location): 10/04/21. Estimated date of delivery (TRUDY) from first dating scan: 06/04/22. The calculations are made using the initial TRUDY of 06/04/22. TECHNIQUE: Real-time scanning was performed of the fetus, with image documentation. Endovaginal scanning: Not needed COMPARISON: None. FINDINGS: A single living intrauterine gestation is present. Presentation: Vertex. Placenta: Placental position is posterior fundal, without previa. No sign of placental abruption after trauma. Amniotic fluid index: 12.4 cm, normal range is 5-24 cm. Single deepest vertical pocket is 5.0 cm. heart rate: 143 beats per minute. Maternal cervical canal: 1.9 -2.4 cm long. IMPRESSION: No sign of placental abruption after trauma. Note is made of a relatively short cervix measured as low is 1.9 cm. No funneling or suspicion of traumatic etiology. Dictated by: Austin Gamboa M.D. on 04/21/2022 at 20:59 Approved by: Austin Gamboa M.D. on 04/21/2022 at 21:04
--- NOTE | 2022-04-21 20:22 | PM.OBPNLAB ---
Date/Time Date Patient Seen: 04/21/22 Time Patient Seen: 20:22
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
[2022-04-21 20:26] LABS: Appearance Urine UA CLEAR; Bilirubin Urine UA NEGATIVE (NEGATIVE); Color Urine UA YELLOW; Glucose Urine UA NEGATIVE (Negative); Ketones Urine UA 1+ (NEGATIVE); Leukocyte Esterase Urine UA NEGATIVE (NEGATIVE); Nitrite Urine UA NEGATIVE (Negative); Occult Blood Urine UA NEGATIVE (Negative); Protein Urine UA NEGATIVE (Negative); Specific Gravity Urine UA <=1.005 (1.000-1.035); Urobilinogen Urine UA 0.2 E.U./dL (0.2)
[2022-04-21] MEDS: BETAMETHASONE 30 MG/5 ML MDV 12 MG IM (20:38)
[2022-04-21] MEDS: LACTATED RINGERS 1,000 ML 1000 ML IV ×2 (20:39→22:54)
[2022-04-21 20:46] LABS: Add Manual Diff / Slide Review NO; Basophils Absolute Auto 0 /uL (0-100); Basophils Percent Auto 0.3 % (0-2); Eosinophils Absolute Auto 200 /uL (0-450); Hematocrit 36.3 % (36-46); Hemoglobin 12.3 g/dL (12.0-16.0); Lymphocytes Absolute Auto 2200 /uL (1100-4500); Lymphocytes Percent Auto 20.1 % (25-40); Mean Corpuscular Hemoglobin 29.5 PG (26-34); Mean Corpuscular Volume 86.8 fL (80-100); Monocytes Absolute Auto 800 /uL (0-900); Monocytes Percent Auto 7.2 % (3-14); Neutrophils Absolute Auto 7600 /uL (1500-7000); Neutrophils Percent Auto 70.4 % (50-75); Platelet Count 229 X10^3/uL (150-400); Red Blood Cell Count 4.18 X10^6/uL (4.0-5.2); Red Cell Distribution Width 12.9 % (11.6-14.8); White Blood Cell Count 10.9 X10^3/uL (4.5-11.0)
[2022-04-21 20:51] LABS: pH Urine UA 6.5 (4.5-8.0)
[2022-04-21 20:52] LABS: Fetal Fibronectin Positive
[2022-04-21 21:01] VITALS: BP 122/77
[2022-04-21 21:01] LABS: COVID19 -Nasal RAPID Negative (Negative)
[2022-04-21 21:06] LABS: Bacteria Urine None Seen; Culture Indicated Urine Cult Not Indicated; RBC Urine None Seen (0-5/HPF); Squamous Epithelial Cell Urine 5-10 /HPF (0-5/HPF); WBC Urine None Seen (0-5/HPF)
[2022-04-21] MEDS: NIFEdipine 10 MG CAPSULE 20 MG PO (21:38)
[2022-04-21] MEDS: CEFAZOLIN 2 GM/100 ML PREMIX 100 ML IV (22:04)
[2022-04-21] MEDS: NIFEdipine 10 MG CAPSULE PO (23:14)
== END 2022-04-22 00:27 | disposition home or self-care (01) ==
PROVIDERS: Admitting Provider Obstetrics & Gynecology; Referring Provider Obstetrics & Gynecology; Visit Provider Obstetrics & Gynecology
DX: O47.03 False labor before 37 completed weeks of gestation, third trimester (principal); O26.893 Other specified pregnancy related conditions, third trimester; S39.81XA Other specified injuries of abdomen, initial encounter; W50.0XXA Accidental hit or strike by another person, initial encounter; Y92.129 Unspecified place in nursing home as the place of occurrence of the external cause; Z3A.33 33 weeks gestation of pregnancy
CPT/HCPCS: 36415; 59025; 59050; 76815; 81001; 82731; 85025; 87635; 96360; 96361; 96372; 99225; C9803; G0378; G0379; J0690; J0702

== ENCOUNTER 2022-06-03 10:31 | Outpatient (CLI) | payer OTHER, MEDICAID, SELFPAY | END 2022-06-03 11:12 | disposition home or self-care (01) | LOC: OB 06-07 07:59 | PROVIDERS: Referring Provider Obstetrics & Gynecology; Visit Provider Obstetrics & Gynecology | DX: O48.0 Post-term pregnancy (principal); O47.1 False labor at or after 37 completed weeks of gestation; Z3A.40 40 weeks gestation of pregnancy | CPT/HCPCS: 59025; G0378; G0379 ==

== ENCOUNTER 2022-06-05 04:55 | Inpatient (IN) | payer OTHER, MEDICAID, SELFPAY ==
[2022-06-05] MEDS: CEFAZOLIN VIAL 1 GM in SODIUM CHLORIDE 0.9% 100 ML IV ×2 (06:16→14:12)
[2022-06-05] MEDS: LACTATED RINGERS 1,000 ML 100 ML IV (06:16)
[2022-06-05 06:18] LABS: Add Manual Diff / Slide Review NO; Basophils Absolute Auto 100 /uL (0-100); Basophils Percent Auto 0.7 % (0-2); Eosinophils Absolute Auto 200 /uL (0-450); Eosinophils Percent Auto 1.6 % (2-4); Hematocrit 39.3 % (36-46); Hemoglobin 13.2 g/dL (12.0-16.0); Lymphocytes Absolute Auto 2900 /uL (1100-4500); Lymphocytes Percent Auto 25.9 % (25-40); Mean Corpuscular HGB Conc 33.7 % (30-36); Mean Corpuscular Hemoglobin 29.2 PG (26-34); Mean Corpuscular Volume 86.7 fL (80-100); Monocytes Absolute Auto 900 /uL (0-900); Monocytes Percent Auto 7.9 % (3-14); Neutrophils Absolute Auto 7000 /uL (1500-7000); Neutrophils Percent Auto 63.9 % (50-75); Platelet Count 263 X10^3/uL (150-400); Red Blood Cell Count 4.53 X10^6/uL (4.0-5.2); Red Cell Distribution Width 13.1 % (11.6-14.8)
[2022-06-05 06:33] LABS: COVID19 -Nasal RAPID Negative (Negative)
[2022-06-05 06:38] VITALS: BP 120/80
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
[2022-06-05] MEDS: OXYTOCIN PREMIX 30 UNIT/500 ML PLAST..BAG IV (09:27)
--- NOTE | 2022-06-05 14:05 | PM.OBPNLAB ---
Date/Time Date Patient Seen: 06/05/22 Time Patient Seen: 13:35 Pain Control Pain control: tolerating well Pelvic Exam Dilation (cm): 6 Effacement (%): 90 station: -1 Amniotic membrane status: Ruptured (AROM of forebag with scant amount of clear fluid) Contractions Monitor mode: External Pitocin rate (mU/min): 8 Contraction frequency (min): 2 Contraction pattern: Regular Status status: Category l Heart Rate Baseline: 140 Monitor Accelerations: Present Monitor Decelerations: Absent Monitor Variability: Moderate Assessment and Plan Assessment: active labor Plan: continuous present management Comments: 26-year-old at 40 weeks and 2 days gestation with spontaneous rupture of membranes at home at 4:00 a.m. with clear fluid, now on pitocin for augmentation. She has received one dose of cefazolin and is due for the next. AROM just now of a forebag with scant clear fluid. Patient now becoming more uncomfortable and requesting epidural. Continue expectant management, anticipate .
[2022-06-05] MEDS: CALCIUM CARBONATE 500 MG TAB 1000 MG PO (14:13)
[2022-06-05] MEDS: FENT 2MCG/ML BUPIV 0.125% EPI 200 MCG/100 ML PLAST..BAG 6 MCG EPIDURAL (15:17)
--- NOTE | 2022-06-05 18:59 | P.PCNOB_ITS ---
Labor & Delivery Delivery date: 06/05/22 Delivery augmentation: pitocin Delivery monitor: external FHT Route of delivery: L&D Laceration Description: Vaginal - 1st Degree and Labial (Second-degree right labial) Delivery repair: chromic Estimated blood loss (mL): 300 Anesthesia Type: Epidural Narrative: Patient is a 26-year-old G 3P1 at 40 weeks and 2 days gestation who gave on 06/05/22 at 1827. TRUDY: 06/03/22 Hospital problems: 40 weeks of Spontaneous rupture membranes GBS positive STAGE I: Labor Patient presented after gross rupture of membranes at home at 4:00 a.m. with clear fluid. She was GBS positive with a mild penicillin allergy so given cefazolin 2 g every 8 hours. She was not yet in active labor after several hours so was started on Pitocin per protocol. At 1:38 p.m. she was found to have a forebag which was ruptured with clear fluid. Active labor began shortly thereafter. She went on to receive an epidural. Patient was complete at 3:30 p.m.. EFM primarily category 1 throughout stage I. Stage I duration approximately 2 hours. STAGE II: Delivery Patient was complete at 3:30 p.m. however vertex still high in the pelvis and patient without the urge to push. She labored down then began pushing after 1700. She went on to deliver a vigorous male infant at 6:27 p.m.. Infant was vertex and BHAVYA. The anterior shoulder delivered followed by slow delivery of the remainder of the body. was placed on mother's abdomen. Cord was clamped and cut after 1 minute delay. Apgars were 8 and 9. At 11 minutes of life looked a bit pale and was taken to the warmer. Spot SpO2 is 98% and he was returned to mother. No respiratory distress. STAGE III: Placenta/Cord Placenta delivered at 18:34 after active management and appeared intact with a 3 vessel cord. Pitocin bolus given via IV after delivery of placenta. A second degree right labial laceration was repaired with 3-O chromic in the usual fashion. A first degree vaginal laceration was repaired with the same suture with good hemostasis. Fundus firm after repaired and hemostasis assured. EBL: 300 mL. Needle and sponge counts were correct. The vagina was inspected and no items were left in situ. Patient was doing well with [place], her and at bedside. [place] Baby 1: Infant gender: Male Presentation: vertex Position: Right Occiput Anterior Placenta delivery description: Spontaneous Cord Vessel Description: 3 Vessels score (1 min): 8 score (5 min): 9 weight: 9 lb 0.447 oz Plan for aftercare: Routine care
[2022-06-05] MEDS: LANOLIN OINT 7 GM 1 APPLIC TOP (23:33)
[2022-06-05] MEDS: IBUPROFEN 600 MG TABLET PO (23:33)
[2022-06-05] MEDS: DERMOPLAST SPRAY 20% 60 ML 1 SPRAY TOP (23:33)
[2022-06-06] MEDS: ACETAMINOPHEN 325 MG TABLET 650 MG PO ×2 (02:51→08:42)
[2022-06-06] MEDS: IBUPROFEN 600 MG TABLET PO ×2 (06:27→12:54)
[2022-06-06] MEDS: PRENATAL VIT,CALC/IRON/FOLIC 1 TABLET 1 TAB PO (08:42)
[2022-06-06] MEDS: DOCUSATE 100 MG CAPSULE PO (08:42)
--- NOTE | 2022-06-06 10:21 | P.DS_ITS ---
Discharge Providers Provider Date of admission: 06/05/22 04:55 Discharge Date: 06/06/22 Primary care physician: Doctor Bob MD Consults: 06/06/22 18:57 Consult to Bicycle I Assembler Routine Comment: Discharge provider: Caroline Ascencio DO Summary Hospital Course Date Patient Seen: 06/06/22 Time Patient Seen: 09:30 Diagnoses: Spontaneous vaginal delivery 40 weeks of GBS positive Epidural analgesia Hospital Course: 26-year-old G3 now P2 after uncomplicated spontaneous vaginal delivery at 40 weeks and 2 days gestation. Patient presented after spontaneous rupture of membranes at home with clear fluid. She was not in active labor after several hours so was started on Pitocin. She went on to receive an epi dural and deliver a vigorous male infant. She was GBS positive and received 2 doses of cefazolin prior to delivery. A first-degree vaginal laceration and second-degree right labial laceration were repaired in the usual fashion with good hemostasis. course has been uncomplicated. She was planning to pump and bottle feed however has been off to a good start. She is ambulating, voiding and passing flatus. Vaginal bleeding is moderate and pain controlled with ibuprofen. No concerns in the . Advised patient to call for fevers, severe pain or bleeding through more than a pad an hour. Follow-up for visit in 6 weeks or call sooner if concerns. Peripartum Data Infant Delivery Method: Natural Vaginal Laceration Description: Vaginal - 1st Degree and Labial complications: none [place] 1: Gender: Male Disposition of : home Discharge Diagnosis (1) Spontaneous vaginal delivery: Status: Acute (2) 40 weeks gestation of : Status: Acute Time Spent with Patient Time attestation: Total time spent providing and/or coordinating discharge services: Time spent: Less than 30 minutes Objective Labs Result Diagrams: 06/06/22 11:10 Exam Vital Signs (past 8 hours): T 98.4 BP 121/74 P 87 RR 17 Narrative Exam Narrative: General: Awake and alert, no acute distress. HEENT: NCAT, EOMI, moist oral mucosa CV: Regular rate and rhythm, no murmurs, rubs or gallops Lungs: CTAB, no wheezes, rales, or rhonchi Abdomen: Soft, nontender; bowel tones active; uterus firm 1 cm below umbilicus Extremities: Warm, no edema, 2+ pedal pulses bilaterally Discharge Plan Discharge Plan Patient Disposition: Home Discharge orders & Medications Prescriptions: New docusate sodium 100 mg Capsule 100 mg PO DAILY Qty: 30 0RF ibuprofen 600 mg Tablet 600 mg PO Q6HR PRN (Reason: Pain, Mild (1-3)) Qty: 30 0RF Continued budesonide-formoterol 160-4.5 mcg/actuation HFA aerosol inhaler See Rx Instructions .ROUTE .COMPLEX Qty: 10.2 6RF Dose Instruction: inhale 2 puffs by mouth twice a day for asthma Rx Instructions: inhale 2 puffs by mouth twice a day for asthma albuterol sulfate 90 mcg/actuation HFA aerosol inhaler 2 puff inhalation Q4-6H PRN (Reason: shortness of breath or wheezing) Qty: 18 3RF prenat.vits,santa,tfh-xiem-iifvz Tablet 1 tab PO DAILY loratadine [Claritin] 10 mg tablet 10 mg PO DAILY Follow up/Referrals: Marilia Armas MD [Physician] - 6 Weeks (Please call the office on Tuesday morning to schedule a 6 week visit) Doctor Rojas MD [Primary Care Provider] - Visit Report/Discharge Packet Visit Report Forms: Patient Portal/API, Stroke Signs & Symptoms Discharge Data Primary Care Provider: Doctor Bob
[2022-06-06 11:19] LABS: Hematocrit 32.7 % (36-46); Hemoglobin 11.2 g/dL (12.0-16.0)
[2022-06-06 14:14] VITALS: TEMP 36.9
[2022-06-06] MEDS: OXYCODONE IR 5 MG TABLET PO (14:14)
[2022-06-06 17:42] VITALS: BP 122/74; PULSE 83; RESP 16; TEMP 36.9
== END 2022-06-06 18:40 | disposition home or self-care (01) | DRG 560 ==
PROVIDERS: Admitting Provider Family Medicine; Referring Provider Family Medicine; Visit Provider Family Medicine
DX: O42.02 Full-term premature rupture of membranes, onset of labor within 24 hours of rupture (principal); Z3A.40 40 weeks gestation of pregnancy; Z37.0 Single live birth; O70.0 First degree perineal laceration during delivery; O70.1 Second degree perineal laceration during delivery; O99.824 Streptococcus B carrier state complicating childbirth; Z20.822 Contact with and (suspected) exposure to COVID-19
CPT/HCPCS: 36415; 59050; 59409; 85014; 85018; 85025; 86850; 86900; 86901; 87635; C9803; G0379; J0690; J2590

== ENCOUNTER 2022-09-08 10:23 | Emergency (ER) | payer OTHER, MEDICAID, SELFPAY ==
--- NOTE | 2022-09-08 10:28 | DI.RAD.S_ITS ---
PROCEDURE: XR CHEST 2V INDICATIONS: cough blood TECHNIQUE: 2 views of the chest were acquired. COMPARISON: [facility], CR, XR CHEST 2V, 07/26/2018, 17:21. FINDINGS: Surgical changes and devices: None. Lungs and pleura: Lungs are clear. No pleural effusions or pneumothorax. Mediastinum: Mediastinal contours are normal. Heart size is normal. Bones and chest wall: No suspicious bony abnormalities. Soft tissues appear unremarkable. IMPRESSION: No acute cardiopulmonary pathology. Dictated by: Piyush Singh M.D. on 09/08/2022 at 11:03 Approved by: Piyush Singh M.D. on 09/08/2022 at 11:03
[2022-09-08 10:48] VITALS: BP 130/77; PULSE 98; RESP 16; TEMP 36.6; O2SAT 98; BMI 31.8
[2022-09-08 11:51] LABS: Influenza A - CEPHEID Flu A NEGATIVE (NEGATIVE); Influenza B - CEPHEID Flu B NEGATIVE (NEGATIVE); Respiratory Syncytial Virus Negative (Negative)
[2022-09-08 11:52] LABS: COVID-19 CEPHEID 4-PLEX PCR Negative (Negative)
--- NOTE | 2022-09-08 13:20 | ED_ITS ---
HPI - URI/Sore Throat <THAIS Person - Last Filed: 09/08/22 14:25> General Chief Complaint: Upper Respiratory Symptoms Stated Complaint: coughing up blood T-2 Time Seen by Provider: 09/08/22 10:28 Source: patient Mode of arrival: Ambulatory History of Present Illness HPI Narrative: This is a 26-year-old female with history of asthma who is 3 months and presents to the emergency department complaining of 2 days of runny nose, cough, congestion, states 2 days ago fever and chills and endorses having urinary symptoms that are abnormal. She denies nausea, vomiting, abnormal vaginal discharge, flank pain, abdominal pain or other systemic symptoms of illness. She states that her baby is healthy, her OBGYN with Dr. Armas and she does not remember her primary care provider is. Related Data Home Medications Medication Instructions Recorded Confirmed loratadine 10 mg tablet (Claritin) 10 mg PO DAILY 10/19/21 07/26/22 prenat.vits,santa,qvy-wner-mvxpw 1 tab PO DAILY 10/19/21 07/26/22 Previous Rx's Medication Instructions Recorded budesonide-formoterol HFA 160 See Rx Instructions .Route 09/01/21 mcg-4.5 mcg/actuation aerosol .COMPLEX #10.2 grams inhaler albuterol sulfate 90 mcg/actuation 2 puff inhalation Q4-6H PRN 03/08/22 aerosol inhaler shortness of breath or wheezing #18 grams docusate sodium 100 mg capsule 100 mg PO DAILY #30 caps 06/06/22 ibuprofen 600 mg tablet 600 mg PO Q6HR PRN Pain, Mild 06/06/22 (1-3) #30 tabs cetirizine 10 mg tablet 10 mg PO DAILY PRN congestion #30 09/08/22 tabs guaifenesin 600 mg tablet, 600 mg PO BID PRN cough #20 tabs 09/08/22 extended release 12 hr (Mucinex) Allergies Allergy/AdvReac Type Severity Reaction Status Date / Time amoxicillin [AMOXICILLIN] Allergy Unknown diarrhea Verified 09/08/22 10:48 Review of Systems <THAIS Person - Last Filed: 09/08/22 14:25> Review of Systems ROS Unobtainable: All systems reviewed & are unremarkable except as noted in HPI and below Patient History <THAIS Person - Last Filed: 09/08/22 14:25> Medical History Asthma Family History Mother Endometriosis Ovarian cancer Father Diabetes mellitus Grandmother Diabetes mellitus Cancer Grandfather Diabetes mellitus Social History marital status: unmarried,living together number of children: 1 household members: significant other, family, children and friend(s) lives independently: Yes housing: other (trailer) pets and animals: Yes (cats, ferrats, aware of Toxoplasmosis ) 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, 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 seatbelt use: always water heater temp set < 120 deg: Yes (will check) working smoke detector in home: Yes fire extinguisher in home: Yes carbon monox detector in home: No (unsure) firearms in home: No do you feel safe at home: Yes Smoking Status: Smoker, status unknown second hand exposure: No alcohol intake: former substance use type: does not use, former substance user and marijuana during the past year weight has: remained stable well-balanced diet: daily or most days daily servings fruits/ve-4 caffeine: Yes (limit of 200mg) Type(s) of exercise: walking Smoking Status: Smoker, status unknown alcohol intake frequency: other Substance Use Type: marijuana Exam <THAIS Person - Last Filed: 09/08/22 14:25> Narrative Exam Narrative: Reviewed vitals signs and nursing notes. General: cooperative, comfortable, in no acute distress, well groomed HEENT: symmetrical facial expressions, moist mucous membranes, congestion, without stridor or lymphadenopathy Cardiovascular: regular rate and rhythm, no peripheral edema, warm extremities Respiratory: normal effort, able to speak in complete sentences, without wheezing, stridor, or abnormal breath sounds. No retractions or tachypnea. wet cough, without wheezing or decreased breath sounds GI: abdomen soft, nontender to palpation, nondistended, without masses, rebound tenderness or exquisite tenderness with exam. MSK: moves all extremities, neurovascularly intact, no weakness, normal tone Skin: brisk capillary refill, without pallor or erythema Neuro: normal speech and cognition, A&O x3, ambulatory, clear speech Psych: mental status is grossly normal, congruent mood, normal affect, pleasant and cooperative Initial Vital Signs Initial Vital Signs: Vital Signs Temperature 97.8 F 09/08/22 10:48 Pulse Rate 98 H 09/08/22 10:48 Respiratory Rate 16 09/08/22 10:48 Blood Pressure 130/77 09/08/22 10:48 Pulse Oximetry 98 09/08/22 10:48 Oxygen Delivery Method 09/08/22 10:48 <Darek Parnell DO - Last Filed: 09/09/22 05:54> Initial Vital Signs Initial Vital Signs: Vital Signs Temperature 97.8 F 09/08/22 10:48 Pulse Rate 98 H 09/08/22 10:48 Respiratory Rate 16 09/08/22 10:48 Blood Pressure 130/77 09/08/22 10:48 Pulse Oximetry 98 09/08/22 10:48 Oxygen Delivery Method 09/08/22 10:48 Course <THAIS Person - Last Filed: 09/08/22 14:25> Orders Ordered: ED Orders 09/08/22 10:28 XR chest 2V Stat 09/08/22 10:48 Covid-19 + FLU A/B + RSV - PCR Stat 09/08/22 13:50 Urine Microscopic Stat Vital Signs Vital signs: Vital Signs - 8 hr 09/08/22 10:48 Temperature 97.8 F Pulse Rate 98 H Respiratory Rate 16 Blood Pressure 130/77 Pulse Oximetry 98 Oxygen Delivery Method Room Air <Darek Parnell DO - Last Filed: 09/09/22 05:54> Orders Ordered: ED Orders 09/08/22 10:28 XR chest 2V Stat 09/08/22 10:48 Covid-19 + FLU A/B + RSV - PCR Stat 09/08/22 13:50 Urine Microscopic Stat Vital Signs Vital signs: Vital Signs - 8 hr 09/08/22 10:48 Temperature 97.8 F Pulse Rate 98 H Respiratory Rate 16 Blood Pressure 130/77 Pulse Oximetry 98 Oxygen Delivery Method Room Air MDM - URI/Sore Throat <Alma Medellin, [facility] - Last Filed: 09/08/22 14:25> Lab Data Labs: Lab Results 09/08/22 09/08/22 Range/Units 10:48 13:50 Urine RBC None seen (0-5/HPF) Urine WBC 1-5/hpf (0-5/HPF) Ur Squamous Epith Cells 1-5 /hpf (0-5/HPF) Urine Bacteria None seen (None) Urine Mucus 2+ H (Negative) Ur Culture Indicated? Cult not indicated SARS-CoV-2 (PCR) Negative (Negative) Influenza A (RT-PCR) Flu a negative (NEGATIVE) Influenza B (RT-PCR) Flu b negative (NEGATIVE) RSV (PCR) Negative (Negative) Imaging Data Chest x-ray: Radiologist's Impression: PROCEDURE:? XR CHEST 2V ? INDICATIONS:? cough blood ? TECHNIQUE:? 2 views of the chest were acquired.? ? COMPARISON:? [facility], , XR CHEST 2V, 07/26/2018, 17:21. ? FINDINGS:? ? Surgical changes and devices:? None.? ? Lungs and pleura:? Lungs are clear.? No pleural effusions or pneumothorax.? ? Mediastinum:? Mediastinal contours are normal.? Heart size is normal.? ? Bones and chest wall:? No suspicious bony abnormalities.? Soft tissues appear unremarkable.? ? IMPRESSION:? No acute cardiopulmonary pathology. ? ? Dictated by: Piyush Singh M.D. on 09/08/2022 at 11:03 ? ? Approved by: Piyush Singh M.D. on 09/08/2022 at 11:03 ? [facility] Narrative Medical decision making narrative: Chief Complaint: cough, congestion, fever x 2 days Independent historian: Patient Differential diagnoses include but are not limited to: Upper respiratory viral infection including COVID, influenza, and others, pneumonia-bacterial or viral, croup, pertussis, asthma/reactive airway exacerbation, allergic reaction, acute otitis media, pharyngitis, bronchitis, GERD postnasal drip, acute cystitis, PID, dehydration, PE. Respiratory PCR: negative for influenza A,B, RSV Do not suspect underlying cardiopulmonary process. Patient is nontoxic appearing and not in need of emergent medical intervention. Patient is tolerating p.o., no increased work of breathing, UA Recommended rest, hydration, tylenol and NSAIDS for fever and/or pain. Return to ED for worsening symptoms such as SOB, chest pain, inability to take adequate oral fluids, fever, or productive cough. I have independently reviewed the patient's vital signs and nursing notes as well as prior records if available. Pertinent lab findings reviewed: Urine microscopy is negative for WBCs, nitrites, RBCs Pertinent Imaging reviewed: Chest x-ray without focal opacity or acute abnormality Patient does have increased work of breathing, she is nontoxic appearing, vital signs are stable, she is well hydrated and has upper respiratory viral symptoms. No evidence of systemic infection at this point, encouraged her to return to the emergency department for worsening, follow up with primary care as needed. Social considerations that may affect disposition: none Questions are addressed and there is agreement with the plan and for follow-up. Patient is appropriate for outpatient management. MIPS: This encounter doesn't have any diagnosis' associated with MIPS criteria. <Darek Parnell, DO - Last Filed: 09/09/22 05:54> Lab Data Labs: Lab Results 09/08/22 09/08/22 Range/Units 10:48 13:50 Urine RBC None seen (0-5/HPF) Urine WBC 1-5/hpf (0-5/HPF) Ur Squamous Epith Cells 1-5 /hpf (0-5/HPF) Urine Bacteria None seen (None) Urine Mucus 2+ H (Negative) Ur Culture Indicated? Cult not indicated SARS-CoV-2 (PCR) Negative (Negative) Influenza A (RT-PCR) Flu a negative (NEGATIVE) Influenza B (RT-PCR) Flu b negative (NEGATIVE) RSV (PCR) Negative (Negative) Discharge Plan Departure Patient Disposition: Home Clinical Impression: Upper respiratory infection Qualifiers: URI type: unspecified viral URI Qualified Code(s): J06.9 - Acute upper respiratory infection, unspecified Asthma, mild intermittent Qualifiers: Asthma complication type: uncomplicated Qualified Code(s): J45.20 - Mild intermittent asthma, uncomplicated Instructions: Common Cold Activity Restrictions/Additional Instructions: *You have been diagnosed with an upper respiratory viral infection which should run its course in 5-7 days. Please use Zyrtec at night as needed for runny nose and wet cough. Please use your albuterol as needed for shortness of breath and continue on your budesonide inhaler as prescribed. Please follow-up with your primary care provider and or OBGYN. Use Mucinex as needed for productive cough. Take ibuprofen and Tylenol as needed for muscle aches, fever and chills. Those are safe for . No evidence of urinary tract infection, hope that you feel better soon, best to avoid steroids and antibiotics for as needed. If you have worsening, or ongoing fevers, please come back for another evaluation *What to do: *Please continue to take your regular medications as directed. [ ] New medication prescriptions sent to your pharmacy: [ ] [ ] New medication written as a paper prescription [ ] No new medications given *Please follow up with your primary care provider in 2-3 days, call for an appointment. Let them know you were seen in the Emergency Department and that we asked that you be seen for follow-up. We will electronically transmit a record of today's note if your PCP is in our system *If you do not have a primary care provider please contact [phone] to establish care with one of the [facility] primary care providers. *Return to Emergency Department if you should have any new, worsening, or concerning symptoms, such as [fever greater than 101F, chills, worsening pain, persistent vomiting or other bothersome symptoms]. Prescriptions: New cetirizine 10 mg tablet 10 mg PO DAILY PRN (Reason: congestion) Qty: 30 0RF guaifenesin [Mucinex] 600 mg tablet extended release 12hr 600 mg PO BID PRN (Reason: cough) Qty: 20 0RF No Action budesonide-formoterol 160-4.5 mcg/actuation HFA aerosol inhaler See Rx Instructions .ROUTE .COMPLEX Qty: 10.2 6RF Dose Instruction: inhale 2 puffs by mouth twice a day for asthma Rx Instructions: inhale 2 puffs by mouth twice a day for asthma albuterol sulfate 90 mcg/actuation HFA aerosol inhaler 2 puff inhalation Q4-6H PRN (Reason: shortness of breath or wheezing) Qty: 18 3RF prenat.vits,santa,aoy-xuuo-kwifv Tablet 1 tab PO DAILY loratadine [Claritin] 10 mg tablet 10 mg PO DAILY docusate sodium 100 mg Capsule 100 mg PO DAILY Qty: 30 0RF ibuprofen 600 mg Tablet 600 mg PO Q6HR PRN (Reason: Pain, Mild (1-3)) Qty: 30 0RF Referrals: Miscellaneous,Doctor, [Primary Care Provider] - Caroline Ascencio DO [Physician] - Stand Alone Forms: Patient Portal/API <Darek Parnell DO - Last Filed: 09/09/22 05:54> Cosign ED Attending Oriana Attestation: I was immediately available in the department for consultation. Documentation has been reviewed. I agree with assessment and plan.
[2022-09-08 14:16] LABS: Bacteria Urine None Seen; Culture Indicated Urine Cult Not Indicated; Mucus Urine 2+ (Negative); RBC Urine None Seen (0-5/HPF); Squamous Epithelial Cell Urine 1-5 /HPF (0-5/HPF); WBC Urine 1-5/HPF (0-5/HPF)
[2022-09-08 14:38] VITALS: BP 115/65; PULSE 91; O2SAT 98
== END 2022-09-08 14:38 | disposition home or self-care (01) ==
PROVIDERS: Emergency Medicine; Emergency Provider Nurse Practitioner Critical Care Medicine
DX: J06.9 Acute upper respiratory infection, unspecified (principal); J45.20 Mild intermittent asthma, uncomplicated; Z20.822 Contact with and (suspected) exposure to COVID-19
CPT/HCPCS: 0241U; 71046; 81015; 99281; 99283

== ENCOUNTER → 2023-06-17 11:05 | Outpatient (CLI) | payer OTHER, MEDICAID, SELFPAY ==
[2023-06-17 12:01] LABS: Influenza A - CEPHEID Flu A POSITIVE (NEGATIVE); Influenza B - CEPHEID Flu B NEGATIVE (NEGATIVE); Respiratory Syncytial Virus Negative (Negative)
[2023-06-17 12:47] LABS: COVID-19 CEPHEID 4-PLEX PCR Negative (Negative)
== END ==
PROVIDERS: PCP Family Medicine; Visit Provider Physician Assistant
DX: R05.1 Acute cough (principal); J02.9 Acute pharyngitis, unspecified
CPT/HCPCS: 0241U; 87070; 87880

== ENCOUNTER → 2024-07-07 09:53 | Outpatient (CLI) | payer OTHER, SELFPAY ==
[2024-07-07 10:30] LABS: Add Manual Diff / Slide Review NO; Basophils Absolute Auto 100 /uL (0-100); Eosinophils Absolute Auto 200 /uL (0-450); Eosinophils Percent Auto 4.1 % (2-4); Hemoglobin 13.9 g/dL (12.0-16.0); Lymphocytes Absolute Auto 1700 /uL (1100-4500); Lymphocytes Percent Auto 31.4 % (25-40); Mean Corpuscular Hemoglobin 28.4 PG (26-34); Mean Corpuscular Volume 85.9 fL (80-100); Monocytes Absolute Auto 500 /uL (0-900); Neutrophils Absolute Auto 2900 /uL (1500-7000); Neutrophils Percent Auto 53.5 % (50-75); Platelet Count 272 X10^3/uL (150-400); Red Blood Cell Count 4.88 X10^6/uL (4.0-5.2); White Blood Cell Count 5.4 X10^3/uL (4.5-11.0)
[2024-07-07 10:43] LABS: Appearance Urine UA CLEAR; Bilirubin Urine UA NEGATIVE (NEGATIVE); Color Urine UA YELLOW; Glucose Urine UA NEGATIVE (Negative); Ketones Urine UA NEGATIVE (NEGATIVE); Leukocyte Esterase Urine UA NEGATIVE (NEGATIVE); Nitrite Urine UA NEGATIVE (Negative); Occult Blood Urine UA NEGATIVE (Negative); Protein Urine UA NEGATIVE (Negative); Specific Gravity Urine UA <=1.005 (1.000-1.035); Urobilinogen Urine UA 0.2 E.U./dL (0.2)
[2024-07-07 11:05] LABS: pH Urine UA 5.5 (4.5-8.0)
[2024-07-07 11:06] LABS: Bacteria Urine None Seen; Culture Indicated Urine Cult Not Indicated; RBC Urine 0-1/HPF (0-5/HPF); Squamous Epithelial Cell Urine 5-10 /HPF (0-5/HPF); Urine Volume 10mL (spun); WBC Urine 0-1/HPF (0-5/HPF)
[2024-07-07 11:57] LABS: HEMOLYSIS 29 (0-50); Iron 181 ug/dL (37-170)
[2024-07-07 11:58] LABS: Alanine Aminotransferase 27 IU/L (<35); Albumin 4.6 g/dL (3.5-5.0); Albumin Globulin Ratio 1.8 (1.0-2.8); Alkaline Phosphatase 53 U/L (38-126); Aspartate Aminotransferase 31 IU/L (14-36); BUN Creatinine Ratio 23.3 (6-22); Bilirubin Total 1.4 mg/dL (0.2-1.3); Blood Urea Nitrogen 14 mg/dL (7-17); Calcium 9.5 mg/dL (8.4-10.2); Carbon Dioxide 21 mmol/L (22-32); Chloride 105 mmol/L (98-107); Estimated Glomerular Filt Rate > 60 mL/min (>60); Globulin 2.6 g/dL (1.7-4.1); Glucose 92 mg/dL (70-100); HEMOLYSIS 41 (0-50); Potassium 4.5 mmol/L (3.4-5.1); Sodium 136 mmol/L (137-145); Total Protein 7.2 g/dL (6.3-8.2)
[2024-07-07 12:08] LABS: Percent Iron Saturation 51 % (15-50); Total Iron Binding Capacity 358 ug/dL (265-497); Transferrin 315 mg/dL (206-381)
[2024-07-07 12:27] LABS: TSH w/ Reflex to FT4 0.64 uIU/mL (0.47-4.68)
[2024-07-07 12:46] LABS: Vitamin B12 602 pg/mL (239-931)
== END ==
LOC: LAB 09:59
PROVIDERS: PCP Family Medicine; Referring Provider Family Medicine; Visit Provider Family Medicine
DX: Z00.00 Encounter for general adult medical examination without abnormal findings (principal); J45.20 Mild intermittent asthma, uncomplicated; R30.0 Dysuria
CPT/HCPCS: 36415; 80053; 81001; 82607; 83540; 83550; 84443; 85025

== ENCOUNTER → 2024-08-16 09:36 | Outpatient (CLI) | payer OTHER, SELFPAY ==
[2024-08-16 10:37] LABS: Add Manual Diff / Slide Review NO; Basophils Absolute Auto 0 /uL (0-100); Basophils Percent Auto 0.9 % (0-2); Eosinophils Absolute Auto 500 /uL (0-450); Eosinophils Percent Auto 10.6 % (2-4); Hemoglobin 12.9 g/dL (12.0-16.0); Lymphocytes Absolute Auto 1600 /uL (1100-4500); Lymphocytes Percent Auto 33.3 % (25-40); Mean Corpuscular HGB Conc 33.1 % (30-36); Mean Corpuscular Hemoglobin 28.3 PG (26-34); Mean Corpuscular Volume 85.5 fL (80-100); Monocytes Absolute Auto 300 /uL (0-900); Neutrophils Absolute Auto 2200 /uL (1500-7000); Neutrophils Percent Auto 48.2 % (50-75); Platelet Count 291 X10^3/uL (150-400); Red Blood Cell Count 4.56 X10^6/uL (4.0-5.2); White Blood Cell Count 4.7 X10^3/uL (4.5-11.0)
[2024-08-16 10:59] LABS: HEMOLYSIS < 15 (0-50); Iron 55 ug/dL (37-170)
[2024-08-16 11:08] LABS: Transferrin 300 mg/dL (206-381)
[2024-08-16 11:19] LABS: Percent Iron Saturation 17 % (15-50); Total Iron Binding Capacity 333 ug/dL (265-497)
[2024-08-16 11:34] LABS: Ferritin 22 ng/mL (6-137)
== END ==
PROVIDERS: PCP Family Medicine; Referring Provider Family Medicine; Visit Provider Family Medicine
DX: R89.9 Unspecified abnormal finding in specimens from other organs, systems and tissues (principal); R79.0 Abnormal level of blood mineral; R79.89 Other specified abnormal findings of blood chemistry
CPT/HCPCS: 36415; 82728; 83540; 83550; 85025

== ENCOUNTER → 2024-08-21 10:49 | Outpatient (CLI) | payer OTHER, SELFPAY ==
--- NOTE | 2024-08-21 10:50 | DI.US.S_ITS ---
PROCEDURE: US THYROID INDICATIONS: INCREASED TSH AND LEFT THYROID GOITER PER PROVIDER TECHNIQUE: Real-time scanning was performed of the thyroid gland, with image documentation. COMPARISON: None. FINDINGS: Thyroid: Right lobe measures 5.6 x 1.5 x 1.6 cm. Left lobe measures 4.5 x 1.4 x 1.6 cm. Isthmus is 0.3 cm thick. Echotexture is homogeneous. Nodule number: 1 Location: Right midpole Size: 1.4 x 0.8 x 0.7 cm. Composition: Predominantly solid Echogenicity: Hypoechoic Shape: wider than tall. Margins: Lobulated Echogenic foci: Punctate echogenic foci Total points: Nine ACR TI-RADS category: Five There are few subcentimeter nodules with less suspicious features in each thyroid lobe. IMPRESSION: 1.4 cm dominant right thyroid nodule, TI-RADS category five. FNA is recommended. ACR TI-RADS definitions and recommendations: TI-RADS 1 (benign): 0 points. FNA not needed. TI-RADS 2 (not suspicious): 2 points. FNA not needed. TI-RADS 3: 3 points. * FNA if 2.5 cm or larger, follow up if 1.5 cm or larger (at 1, 3, and 5 years). TI-RADS 4: 4-6 points. * FNA if 1.5 cm or larger, follow up if 1 cm or larger (at 1, 2, 3, and 5 years). TI-RADS 5: 7 points or more. * FNA if 1 cm or larger, follow up if 0.5 cm or larger (every year for 5 years). Dictated by: Yoanna Alfonso M.D. on 08/21/2024 at 12:15 Approved by: Yoanna Alfonso M.D. on 08/21/2024 at 12:24
[2024-08-22 16:08] LABS: Anti Thyroglobulin Antibody <1.0 IU/mL (0.0-0.9); Thyroid Peroxidase Antibodies <9 IU/mL (0-34)
== END ==
PROVIDERS: PCP Family Medicine; Referring Provider Family Medicine; Visit Provider Family Medicine
DX: E04.1 Nontoxic single thyroid nodule (principal)
CPT/HCPCS: 36415; 76536; 86376; 86800

== ENCOUNTER → 2024-09-05 13:51 | Outpatient (CLI) | payer OTHER, SELFPAY ==
--- NOTE | 2024-09-05 | PATH_ITS ---
Note [facility] Accession Number: [id number] TESTS RESULT FLAG UNITS REF RANGE LAB Clinician Provided Cytology Information No. of containers..01 Other (Miscellaneous) No. of containers..02 Previously Prepared Cytology Slide Source: RIGHT THYROID NODULE DIAGNOSIS: RIGHT THYROID NODULE, FINE NEEDLE ASPIRATION. NEGATIVE FOR MALIGNANT CELLS. ADEQUATE FOR EVALUATION. FOLLICULAR GROUPS ARE PRESENT. BENIGN FOLLICULAR (GOITEROUS) NODULE (BETHESDA CATEGORY II), SEE COMMENT. COMMENT: MICROSCOPIC EXAMINATION REVEALS A MILDLY CELLULAR ASPIRATE, COMPOSED OF COLLOID, FOLLICULAR GROUPS WITHOUT SIGNIFICANT CYTOLOGIC OR ARCHITECTURAL ATYPIA, AND FEW BACKGROUND MACROPHAGES. THESE FINDINGS SUPPORT A BENIGN FOLLICULAR (GOITEROUS) NODULE. CORRELATION WITH CLINICAL AND RADIOGRAPHIC FINDINGS IS RECOMMENDED. ACCORDING TO THE B[place]DA REPORTING SYSTEM FOR THYROID CYTOPATHOLOGY, THE RISK OF MALIGNANCY IN THE CATEGORY BENIGN-CATEGORY II IS 0-3%; THEREFORE RECOMMEND CONTINUED ULTRASOUND SURVEILLANCE WITH REPEAT FNA IF THE NODULE SIGNIFICANTLY INCREASES IN SIZE. Pathologist ICD10: 01 E04.1 Signed out by: Hermelinda Rae MD, Pathologist NPI- [id number] Performed by: Hermelinda Casey, Bioinformatics Specialist ([facility]) Gross description: 01 30 CC, PINK, CLEAR RECIEVED: IN ALCOHOL AND CYTOLYT WITH 6 ALCOHOL FIXED AND 6 QUICK STAINED SLIDES ALSO 1 RNA VIAL WILL ON 02-22-2025.VO /VDU 09/06/2024 0739 Local FLAG LEGEND: L-Low Normal,H-High Normal,LL-Alert Low,HH-Alert High <-Panic Low,>-Panic High,A-Abnormal,AA-Critical Abnormal Performed at: [address] [facility], [place] [address] Kenan Crwoell MD, Performed at: [address] [address], [place], [place] [id number] MD Kenan Crowell MD Phone: [phone]
--- NOTE | 2024-09-05 13:53 | DI.US.S_ITS ---
PROCEDURE: US FINE NEEDLE ASPIRATION INDICATIONS: 1.4cm dominant right thyroid nodule TECHNIQUE: The indications, alternatives, benefits, risks, and complications of the procedure were explained to the patient. Written informed consent was obtained and placed in the chart. The thyroid region was examined sonographically and a site was chosen for ultrasound guided percutaneous sampling. The skin was prepared and draped in the usual fashion, and anesthetized with 1% lidocaine infiltrated from the skin down to the thyroid gland. Multiple passes were then performed, with contents emptied into an appropriate pathology specimen container. A bandage was applied to the area of access at completion of the study. COMPARISON: None. FINDINGS: Location(s) of lesion(s) sampled: Right thyroid lobe [place]: 25 gauge hypodermic needles. Number of passes: 6 Medications: 1% lidocaine for local anaesthesia. Complications: None. IMPRESSION: Successful ultrasound-guided thyroid nodule fine needle aspiration, with cytology results pending. Please see chart below for management recommendations based on cytology results. [facility] ReportingRecommendationsNon-diagnostic* Repeat US-guided FNA, with on-site cytology evaluation if possible. * Repeated non-diagnostic nodules without high suspicion US features: close observation vs surgical consult. * Consider surgery if nodule has high suspicion US features, grows >20% in 2 dimensions on followup, or patient has clinical risk factors for malignancy. Benign* If nodule has high suspicion US features: repeat US and FNA within 12 months. * If nodule has low to intermediate suspicion US features: repeat US at 12-24 months. If nodule grows (20% increase in at least 2 dimensions, with minimal increase of 2 mm or >50% change in volume), or development of new suspicious US features, then repeat FNA or continue followup. * If nodule has very low suspicion US features: followup US at >24 months. Atypia of undetermined significance, follicular lesion of undetermined significanceRepeat FNA, molecular testing, followup US, or surgical consult.Follicular neoplasm, suspicious for follicular neoplasmSurgical consult; also consider molecular testing. Suspicious for malignancySurgical consult.MalignantSurgical consult. Dictated by: Lexx Negron M.D. on 09/05/2024 at 15:38 Approved by: Lexx Negron M.D. on 09/05/2024 at 15:38
== END ==
PROVIDERS: PCP Family Medicine; Visit Provider Radiology Diagnostic Radiology
DX: E04.1 Nontoxic single thyroid nodule (principal)
CPT/HCPCS: 10005

== ENCOUNTER → 2024-11-24 14:37 | Outpatient (CLI) | payer OTHER, SELFPAY | PROVIDERS: PCP Family Medicine; Visit Provider Physician Assistant Surgical | DX: R30.0 Dysuria (principal) | CPT/HCPCS: 87077; 87086 ==

== ENCOUNTER → 2024-12-27 10:25 | Outpatient (CLI) | payer OTHER, SELFPAY ==
[2024-12-27 11:36] LABS: Add Manual Diff / Slide Review NO; Basophils Absolute Auto 100 /uL (0-100); Basophils Percent Auto 1.1 % (0-2); Eosinophils Absolute Auto 700 /uL (0-450); Eosinophils Percent Auto 9.6 % (2-4); Hematocrit 39.2 % (36-46); Hemoglobin 13.1 g/dL (12.0-16.0); Lymphocytes Absolute Auto 2000 /uL (1100-4500); Lymphocytes Percent Auto 29.2 % (25-40); Mean Corpuscular HGB Conc 33.5 % (30-36); Mean Corpuscular Hemoglobin 28.9 PG (26-34); Mean Corpuscular Volume 86.2 fL (80-100); Monocytes Absolute Auto 600 /uL (0-900); Monocytes Percent Auto 9.3 % (3-14); Neutrophils Absolute Auto 3600 /uL (1500-7000); Neutrophils Percent Auto 50.8 % (50-75); Platelet Count 278 X10^3/uL (150-400); Red Blood Cell Count 4.54 X10^6/uL (4.0-5.2); Red Cell Distribution Width 13.5 % (11.6-14.8)
[2024-12-27 12:05] LABS: Alanine Aminotransferase 24 IU/L (<35); Albumin Globulin Ratio 1.8 (1.0-2.8); Alkaline Phosphatase 52 U/L (38-126); Aspartate Aminotransferase 37 IU/L (14-36); BUN Creatinine Ratio 26.9 (6-22); Bilirubin Total 1.2 mg/dL (0.2-1.3); Blood Urea Nitrogen 14 mg/dL (7-17); Calcium 9.6 mg/dL (8.4-10.2); Carbon Dioxide 24 mmol/L (22-32); Chloride 103 mmol/L (98-107); Estimated Glomerular Filt Rate > 60 mL/min (>60); Globulin 2.8 g/dL (1.7-4.1); Glucose 80 mg/dL (70-99); HEMOLYSIS 94 (0-50); Potassium 4.7 mmol/L (3.4-5.1); Sodium 136 mmol/L (137-145); Total Protein 7.8 g/dL (6.3-8.2)
[2024-12-27 12:33] LABS: Thyroid Stimulating Hormone 0.794 uIU/mL (0.47-4.68)
== END ==
PROVIDERS: PCP Family Medicine; Referring Provider Family Medicine; Visit Provider Family Medicine
DX: E04.9 Nontoxic goiter, unspecified (principal)
CPT/HCPCS: 36415; 80053; 83036; 84439; 84443; 85025